=== PATIENT | male | born 1965 | race Caucasian/White ===

== ENCOUNTER 2025-02-06 23:55 | Inpatient (IN) | payer OTHER, SELFPAY ==
[2025-02-06 21:27] VITALS: BP 151/106; BMI 18.2
[2025-02-06 21:29] VITALS: BP 151/106
[2025-02-06] MEDS: DUONEB 3 ML INH (21:42)
[2025-02-06] MEDS: VENTOLIN NEBULES 5 MG INH (21:43)
--- NOTE | 2025-02-06 21:44 | ED.GENMED ---
History of Present Illness
<Sandip Zhu PA-C - Last Filed: 02/06/25 22:30>
General
Chief Complaint: Breathing Problem
Source: patient
Exam Limitations: none
Time Seen by Provider: 02/06/25 21:28
History of Present Illness
History of Present Illness:
59-year-old male with history of ALS presents via EMS from home with increased respiratory difficulty. Started around noon today. He is followed at [facility]. He typically wears a CPAP mask just for increased pressure support but does not typically
need additional oxygen. Today upon EMS arrival he was and he required 8 L nasal cannula underneath the CPAP mask. He does feel better with additional oxygen. He denies pain. Some history obtained from patient some history obtained from the
patient daughter. He is not anticoagulated. He started with URI symptoms yesterday with a sore throat and a cough.
Phy Exam
<Sandip Zhu PA-C - Last Filed: 02/06/25 22:30>
Physical Exam
Physical Exam:
General: Well-developed male with increased work of breathing
HEENT normocephalic atraumatic neck is supple
Heart: Tachycardic and regular
Lungs: Slightly diminished bilaterally with wheeze
Extremities: Mild edema bilateral lower extremities
Skin: Warm no rash
Scores
<Sandip Zhu PA-C - Last Filed: 02/06/25 22:30>
Heart Failure Risk
Heart Failure Risk Score: Not Applicable
Course
<Sandip Zhu PA-C - Last Filed: 02/06/25 22:30>
Orders/Labs/Results
Orders:
Orders
02/06/25 21:33
Electrocardiogram (*1) Urgent
Reason for Study: Other
Other Reason for Exam: Respiratory Distress
Cardiac Monitoring- Treatment ONCE
EKG- Treatment ONCE
IV Insert/Care/Rem.- Treatment PRN
O2 Therapy [RESP] Urgent
Titrate/Wean O2 to maintain O2 sat greater than (%): 93
Special Instructions: TO MAINTAIN CONTINUOUS O2 SATS >/= 93%
Pulse Ox/cont/shift [RESP] Urgent
Quantity: 1
Special Instructions: continuous pulse ox
02/06/25 21:36
Cr Chest Portable [CR Chest Portable - 1 View] Urgent
Comment:
Reason For Exam: sob
Reason Study Needs to be Portable: Patient Unstable
02/06/25 21:40
COVID-19 Antigen Urgent
Source: Nasal Swab
Complete Blood Count/With Diff Urgent
Comprehensive Metabolic Panel Urgent
NT-proBNP Urgent
Troponin I Urgent
Influenza A+B Rapid Molecular Urgent
BENOIT Source: Nasal Swab
Specimen Description:
02/06/25 21:41
Ipratropium/Albuterol Sulfate [Duoneb] 3 ml INH R NOW ONE
02/06/25 21:42
Albuterol Nebs [Ventolin Nebules] 5 mg INH R NOW STA
02/06/25 21:51
Dexamethasone Sod Phosphate [Decadron] 10 mg IV NOW STA
02/06/25 22:00
ABG [Arterial Blood Gas] Urgent
%Oxygen/Room Air: nasal cannula
02/06/25 22:23
0.9% Sodium Chloride 1000 ml [Nss] 1,000 ml IV BOLUS
02/06/25 23:00
Flush (0.9% Sodium Chloride) [Flush (Nss)] See Dose Instructions IV PER PROTOCOL
02/06/25 23:46
Admit/Transfer Patient As Directed
Co-Sign Provider:
Level of Care: Inpatient admission
Assign to:: IMU- Intermediate Care
Physician / Group: Luis Enrique
Diagnosis: Respiratory failure
Reason for Hospitalization: Respiratory failure
Expected length of stay greater than two midnights?: Yes
ELOS- Estimated Length of Stay in days: 2
I certify the patient meets the requirements for IP care: Yes
PRN Pain Medication Management As Directed
May give lesser potent ordered pain med per pt: Yes
preference::
Protocol:: Medication orders for pain may be administered in a
manner that supports deferring to patient preference
when the pt is:
- Requesting an ordered lesser potent pain medication.
Least to most potent pain medications are defined
as: acetaminophen < NSAID < tramadol < opioids
(morphine, oxycodone, hydromorphone).
- Requesting a lesser dose of the same medication IF
ORDERED.
- Requesting a less intrusive route of administration
if both routes are prescribed by the provider (PO <
IV).
02/06/25 23:48
Code Status As Directed
Resuscitation Status: Full Code
02/06/25 23:54
D-Dimer Stat
Procalcitonin Stat
If negative, will antibiotics be d/c'd or not started: Yes
Does the patient have renal or hepatic impairment?: No
Any recent (w/in 48 hrs) physiologic stress (CPR, rhabdo): No
02/07/25 01:32
Acetaminophen [Tylenol] 650 mg PO Q4HPRN PRN
Albuterol Nebs [Ventolin Nebules] 2.5 mg INH R Q4HPRN PRN
Bisacodyl [Dulcolax] 10 mg RECTAL [id number] PRN
Dextrose 5%/Lactringers 1000ML [D5lr] 1,000 ml IV 100 mls/hr
Docusate W/Senna [Senokot-S] 1 tablet PO BIDPRN PRN
Lorazepam [Ativan] 0.5 mg PO Q3H PRN anxiety
Ondansetron Injectable [Zofran] 4 mg IV Q6HPRN PRN
Polyethylene Glycol Powder [Miralax] 17 grams PO DAILYPRN PRN
02/07/25 01:32
Consult Notification Routine
Specialty to Notify: Pulmonary
Date consulting provider notified: 02/07/25
Time consulting provider notified: 07:50
Notified:: Provider
PULMONARY CONSULT Routine
Consulting Provider: Juno Peter
Was physician already notified: No
Reason for consult: ALS here with bronchitis and respiratory failure
Activity As Directed
Activity Level: With Assistance
Vital Signs As Directed
Frequency: Per unit guidelines
DX Deep Vein Thrombosis Video Routine
02/07/25 05:18
Basic Metabolic Panel IN AM
Complete Blood Count/No Diff IN AM
Venous Blood Gas IN AM
%Oxygen/Room Air: 100
02/07/25 06:00
MethylPREDNISolone PF [Solu-Medrol Pf] 40 mg IV Q12H
02/07/25 08:00
Celecoxib [Celebrex] 200 mg PO BID
Ipratropium/Albuterol Sulfate [Duoneb] 3 ml INH R QID
fluticasone propionate 1 spray NASAL BID
riluzole See Dose Instructions PO BID
02/07/25 Dinner
NPO
Allow oral meds: Yes
Allow clear liquids: Sips of Clears
02/07/25 18:00
Enoxaparin Sodium [Lovenox] 40 mg SC QPM
Abnormal Lab Results
02/06/25 02/06/25
21:40 22:00
WBC 12.8 H 10^3/uL
(4.8-10.8)
MCH 31.6 H pg
(27.0-31.0)
Absolute Neuts (auto) 11.3 H 10^3/uL
(1.4-6.5)
Absolute Lymphs (auto) 0.7 L 10^3/uL
(1.2-3.4)
Neutrophils % 88.6 H %
(42.2-75.2)
Lymphocytes % 5.6 L %
(20.5-51.1)
pO2 76 L mmHg
(83-108)
HCO3 29.8 H mmol/L
(21-28)
Creatinine 0.3 L mg/dL
(0.7-1.3)
Calcium 10.6 H mg/dl
(8.4-10.2)
02/06/25 21:40
02/06/25 21:40
Vital Signs
Initial and Last Documented VS:
Initial Vital Signs
Temp Pulse Resp BP Pulse Ox
97.7 F 117 30 151/106 99
02/06/25 21:27 02/06/25 21:27 02/06/25 21:27 02/06/25 21:27 02/06/25 21:27
Last Documented Vital Signs
Temp Pulse Resp BP Pulse Ox
98.5 F 122 25 112/80 96
02/07/25 15:58 02/07/25 18:00 02/07/25 18:00 02/07/25 18:00 02/07/25 18:00
<Elliott Ulloa MD - Last Filed: 02/07/25 18:49>
Orders/Labs/Results
Orders:
Orders
02/06/25 21:33
Electrocardiogram (*1) Urgent
Reason for Study: Other
Other Reason for Exam: Respiratory Distress
Cardiac Monitoring- Treatment ONCE
EKG- Treatment ONCE
IV Insert/Care/Rem.- Treatment PRN
O2 Therapy [RESP] Urgent
Titrate/Wean O2 to maintain O2 sat greater than (%): 93
Special Instructions: TO MAINTAIN CONTINUOUS O2 SATS >/= 93%
Pulse Ox/cont/shift [RESP] Urgent
Quantity: 1
Special Instructions: continuous pulse ox
02/06/25 21:36
Cr Chest Portable [CR Chest Portable - 1 View] Urgent
Comment:
Reason For Exam: sob
Reason Study Needs to be Portable: Patient Unstable
02/06/25 21:40
COVID-19 Antigen Urgent
Source: Nasal Swab
Complete Blood Count/With Diff Urgent
Comprehensive Metabolic Panel Urgent
NT-proBNP Urgent
Troponin I Urgent
Influenza A+B Rapid Molecular Urgent
BENOIT Source: Nasal Swab
Specimen Description:
02/06/25 21:41
Ipratropium/Albuterol Sulfate [Duoneb] 3 ml INH R NOW ONE
02/06/25 21:42
Albuterol Nebs [Ventolin Nebules] 5 mg INH R NOW STA
02/06/25 21:51
Dexamethasone Sod Phosphate [Decadron] 10 mg IV NOW STA
02/06/25 22:00
ABG [Arterial Blood Gas] Urgent
%Oxygen/Room Air: nasal cannula
02/06/25 22:23
0.9% Sodium Chloride 1000 ml [Nss] 1,000 ml IV BOLUS
02/06/25 23:00
Flush (0.9% Sodium Chloride) [Flush (Nss)] See Dose Instructions IV PER PROTOCOL
02/06/25 23:46
Admit/Transfer Patient As Directed
Co-Sign Provider:
Level of Care: Inpatient admission
Assign to:: IMU- Intermediate Care
Physician / Group: Luis Enrique
Diagnosis: Respiratory failure
Reason for Hospitalization: Respiratory failure
Expected length of stay greater than two midnights?: Yes
ELOS- Estimated Length of Stay in days: 2
I certify the patient meets the requirements for IP care: Yes
PRN Pain Medication Management As Directed
May give lesser potent ordered pain med per pt: Yes
preference::
Protocol:: Medication orders for pain may be administered in a
manner that supports deferring to patient preference
when the pt is:
- Requesting an ordered lesser potent pain medication.
Least to most potent pain medications are defined
as: acetaminophen < NSAID < tramadol < opioids
(morphine, oxycodone, hydromorphone).
- Requesting a lesser dose of the same medication IF
ORDERED.
- Requesting a less intrusive route of administration
if both routes are prescribed by the provider (PO <
IV).
02/06/25 23:48
Code Status As Directed
Resuscitation Status: Full Code
02/06/25 23:54
D-Dimer Stat
Procalcitonin Stat
If negative, will antibiotics be d/c'd or not started: Yes
Does the patient have renal or hepatic impairment?: No
Any recent (w/in 48 hrs) physiologic stress (CPR, rhabdo): No
02/07/25 01:32
Acetaminophen [Tylenol] 650 mg PO Q4HPRN PRN
Albuterol Nebs [Ventolin Nebules] 2.5 mg INH R Q4HPRN PRN
Bisacodyl [Dulcolax] 10 mg RECTAL [id number] PRN
Dextrose 5%/Lactringers 1000ML [D5lr] 1,000 ml IV 100 mls/hr
Docusate W/Senna [Senokot-S] 1 tablet PO BIDPRN PRN
Lorazepam [Ativan] 0.5 mg PO Q3H PRN anxiety
Ondansetron Injectable [Zofran] 4 mg IV Q6HPRN PRN
Polyethylene Glycol Powder [Miralax] 17 grams PO DAILYPRN PRN
02/07/25 01:32
Consult Notification Routine
Specialty to Notify: Pulmonary
Date consulting provider notified: 02/07/25
Time consulting provider notified: 07:50
Notified:: Provider
PULMONARY CONSULT Routine
Consulting Provider: Juno Peter
Was physician already notified: No
Reason for consult: ALS here with bronchitis and respiratory failure
Activity As Directed
Activity Level: With Assistance
Vital Signs As Directed
Frequency: Per unit guidelines
DX Deep Vein Thrombosis Video Routine
02/07/25 05:18
Basic Metabolic Panel IN AM
Complete Blood Count/No Diff IN AM
Venous Blood Gas IN AM
%Oxygen/Room Air: 100
02/07/25 06:00
MethylPREDNISolone PF [Solu-Medrol Pf] 40 mg IV Q12H
02/07/25 08:00
Celecoxib [Celebrex] 200 mg PO BID
Ipratropium/Albuterol Sulfate [Duoneb] 3 ml INH R QID
fluticasone propionate 1 spray NASAL BID
riluzole See Dose Instructions PO BID
02/07/25 Dinner
NPO
Allow oral meds: Yes
Allow clear liquids: Sips of Clears
02/07/25 18:00
Enoxaparin Sodium [Lovenox] 40 mg SC QPM
Abnormal Lab Results
02/06/25 02/06/25
21:40 22:00
WBC 12.8 H 10^3/uL
(4.8-10.8)
MCH 31.6 H pg
(27.0-31.0)
Absolute Neuts (auto) 11.3 H 10^3/uL
(1.4-6.5)
Absolute Lymphs (auto) 0.7 L 10^3/uL
(1.2-3.4)
Neutrophils % 88.6 H %
(42.2-75.2)
Lymphocytes % 5.6 L %
(20.5-51.1)
pO2 76 L mmHg
(83-108)
HCO3 29.8 H mmol/L
(21-28)
Creatinine 0.3 L mg/dL
(0.7-1.3)
Calcium 10.6 H mg/dl
(8.4-10.2)
02/06/25 21:40
02/06/25 21:40
Vital Signs
Initial and Last Documented VS:
Initial Vital Signs
Temp Pulse Resp BP Pulse Ox
97.7 F 117 30 151/106 99
02/06/25 21:27 02/06/25 21:27 02/06/25 21:27 02/06/25 21:27 02/06/25 21:27
Last Documented Vital Signs
Temp Pulse Resp BP Pulse Ox
98.5 F 122 25 112/80 96
02/07/25 15:58 02/07/25 18:00 02/07/25 18:00 02/07/25 18:00 02/07/25 18:00
<Sandip Zhu PA-C - Last Filed: 02/06/25 22:30>
MDM/Problems Addressed
Differential Diagnosis Includes:
Respiratory difficulty. History of ALS. Question viral illness COVID and flu test pending. Question pneumonia versus pneumothorax versus progression of disease
<Sandip Zhu PA-C - Last Filed: 02/06/25 22:30>
*Critical Care Note
Total Time (30-74mins, 75-104mins- exclusive of procedures): Not Applicable
<SHANNON Gutierrez Last Filed: 02/06/25 22:30>
Update Note
Update Note:
Patient received nebulizer here and is getting additional oxygen support through his BiPAP. Chest x-ray clear. Labs reviewed. Suspect acute bronchitis. He clinically has improved. Spoke with family they prefer to stay here rather than be
transferred to [facility]. He was given Decadron as well. Will admit to hospital for acute bronchitis in the setting of known ALS
ED Attending Note
<Sandip Zhu PA-C - Last Filed: 02/06/25 22:30>
-
Portions of this chart may have been created with voice recognition software.� Occasional wrong word or��sound alike� substitutions may have occurred due to the inherent limitations of voice recognition software.
<Elliott Ulloa MD - Last Filed: 02/07/25 18:49>
ED Attending Note
Patient seen and examined by attending physician: Yes
I performed the substantive portion of visit, reviewed & personally made and approve the management plan that is documented in note by myself or JASPAL.: Yes
ED Attending Note:
Patient with ALS. Presents with respiratory symptoms upper respiratory symptoms progressive over 24 hours. Much worse late this afternoon. Uses BiPAP at home. Followed at [facility]. Hypoxic at home.
On exam patient was initially retracting BiPAP in place. Pulse ox is 91 to 96%. Some mild expiratory wheezing and rhonchi diffusely. However fully alert and able to communicate and interact. Sequelae of ALS. With atrophy and muscle weakness
Rechecked multiple times while in the room. Pulse oxes remained borderline. Added DuoNeb and albuterol. Chest x-ray initially concern for pneumothorax but it was a skinfold. Reviewed this with radiology. Currently doing much better on the
BiPAP. Retractions have improved significantly. ABG stable. Steroids ordered. Patient and daughter would very much like to stay here.
Discussed intubation if necessary. They are contemplating this. However at this time he does not need immediate airway management.
critical care=35 minutes
Discharge Plan
Departure
Patient Disposition: Admit
Date of Disposition: 02/06/25
Time of Disposition: 22:29
Presentation/result/management discussed w/ accepting MD/DO: Hospitalist
Discharge Problem:
Acute bronchitis
Interventions
Interventions:
*General Assessment Last Done: 02/06/25 21:39
*Neglect/Abuse Screening Last Done: 02/06/25 21:39
*ED- Fall Risk Assessment Last Done: 02/06/25 21:50
*Nursing Disposition Last Done: 02/07/25 01:10
ED- Cardiac Assessment Last Done: 02/06/25 23:10
ED- Pulmonary Assessment Last Done: 02/06/25 23:10
Discharge Date and Time
Discharge Date/Time: 02/07/25 01:10
[2025-02-06 21:49] LABS: % Basophils 0.4 % (0-2); % Eosinophils 0.5 % (0-6); % Immature Granulocytes 0.3 % (0-0.5); % Lymphocytes 5.6 % (20.5-51.1); % Monocytes 4.6 % (1.7-9.3); % Neutrophils 88.6 % (42.2-75.2); Absolute Basophils 0.1 10^3/uL (0-0.2); Absolute Eosinophils 0.1 10^3/uL (0-0.7); Absolute Lymphocytes 0.7 10^3/uL (1.2-3.4); Absolute Monocytes 0.6 10^3/uL (0.1-0.6); Absolute Neutrophils 11.3 10^3/uL (1.4-6.5); Hematocrit 44.5 % (39.0-52.0); Mean Corp Hgb Conc. 33.7 g/dL (33.0-37.0); Mean Corpuscular Hgb 31.6 pg (27.0-31.0); Mean Corpuscular Volume 93.9 fL (80.0-94.0); Mean Platelet Volume 10.1 fL (7.4-10.4); Nucleated Red Blood Cells % 0 % (-); Platelet Count 215 10^3/uL (130-400); Red Blood Cell Count 4.74 10^6/uL (4.70-6.10); Red Cell Dist. Width 12.3 % (11.5-14.5); White Blood Cell Count 12.8 10^3/uL (4.8-10.8)
[2025-02-06] MEDS: DECADRON 10 MG IV (21:54)
[2025-02-06 22:00] VITALS: BP 150/98
[2025-02-06 22:10] LABS: ALT (SGPT) 39 U/L (0-50); AST (SGOT) 30 U/L (17-59); Alkaline Phosphatase 62 U/L (38-126); Blood Urea Nitrogen 18 mg/dl (9-20); COVID-19 Antigen Negative (Negative); Calcium 10.6 mg/dl (8.4-10.2); Carbon Dioxide 29 mmol/L (22-30); Chloride 100 mmol/L (98-107); Estimated Creatinine Clearance 120 ml/min; Glucose 90 mg/dl (70-99); Potassium 4.5 mmol/L (3.5-5.1); Sodium 137 mmol/L (135-145); Total Protein 7.9 g/dl (6.3-8.2); eGFR > 60.00
[2025-02-06 22:12] LABS: B.E. 4.4 mmol/L; HCO3 29.8 mmol/L (21-28); O2 Saturation % 96.4 % (94-98); PCO2 46 mmHg (35-48); PO2 76 mmHg (83-108); pH 7.42 (7.35-7.45)
[2025-02-06 22:23] LABS: NT-proBNP < 20.0 pg/ml; Troponin I < 0.012 ng/ml
[2025-02-06] MEDS: NSS 1000 IV (22:24)
[2025-02-06 23:00] VITALS: BP 133/90
--- NOTE | 2025-02-06 23:53 | HPS.HSE ---
Family Physician
-
Family Physician:
Chief Complaint
-
Shortness of breath
History of Present Illness
This is a 59-year-old with past medical history significant for ALS who is currently CPAP dependent at home presenting to the emergency department with worsening shortness of breath over the last 2 days.
According to patient and family he had sore throat and some nasal congestion yesterday. Today he reported having postnasal drip. Family reported that although he had his nasal congestion yesterday he was not having any shortness of breath.
However today he started noticing that he was more gasping for he and required his CPAP throughout the day. He was more sleepy. After sleeping with his CPAP and waking up he felt a bit better. Try to exercise and then afterwards he got really
short of breath. After getting off of the machine and trying to lay down he noticed increased postnasal drip as well. He is unable to bring up any cough. Denies any fevers or chills. There are no known sick contacts.
He denied having any chest pain. He denies any lower extremity swelling. He denies any calf tenderness. He has been no recent travels. He is still mobile despite the ALS but relatively decreased. He does have some laryngeal spasms but denies
dysphagia. No prior history of aspiration pneumonia.
By time EMS was called and pulse ox checked the patient was desatting into the low 80s. He was placed on oxygen with improvement in oxygen status but had increased work of breathing.
On arrival in the emergency department he was placed on BiPAP. When I saw the patient his vitals were as follows blood pressure of 130/90 with a pulse of 107 and was satting 98% on 15 L BiPAP of 8/4.
He had a white count of 12.8 hemoglobin normal platelet count normal. His electrolytes were normal with a bicarb of 29 and a BUN and creatinine of 10 and 0.3.
Troponin was negative, BNP was negative. COVID test was negative. Flu test was negative.
Chest x-ray shows no acute infiltrates.
Medical History
Past Medical History
Past Medical History: Reports Other (ALS)
Past Surgical History: Reports None
Social History
Tobacco: Non-smoker
Alcohol: None
Drug: None
Personal:
Living: With Family
Employment: Disabled
Family History
Family History: Not pertinent
Allergies / Home Medications
Allergies reflects when Allergies were last updated in [facility].
Home Medications with original date entered in [facility]
Allergy/Medication List:
Allergies
Allergy/AdvReac Type Severity Reaction Status Date / Time
Penicillins Allergy Unknown Verified 02/06/25 21:35
Home Medications
celecoxib 200 mg capsule (Celebrex) 200 mg PO BID 02/06/25
fluticasone propionate 50 mcg/actuation nasal spray,suspension 1 spray intranasal BID 02/06/25
lorazepam 0.5 mg tablet (Ativan) 0.5 mg PO Q3H PRN anxiety 02/06/25
riluzole 50 mg tablet 50 mg PO BID 02/06/25
Review of Systems
-
History Source: Patient and Family
Constitutional: Reports No Symptoms
EENT: Reports No Symptoms
Respiratory: Reports Trouble Breathing
Cardiac: Reports No Symptoms
Abdomen/GI: Reports No Symptoms
: Reports No Symptoms
Musculoskeletal: Reports No Symptoms
Skin: Reports No Symptoms
Neurological: Reports No Symptoms
Endocrine: Reports No Symptoms
Hematologic/Lymphatic: Reports No Symptoms
Psych: Reports No Symptoms
Physical Exam
Vital Signs
Vital Signs
Temp Pulse Resp BP Pulse Ox
98.1 F 107 27 133/90 96
02/06/25 23:17 02/06/25 23:00 02/06/25 23:00 02/06/25 23:00 02/06/25 23:10
Physical Exam
General: Appears Chronically Ill
HEENT: NormoCephalic, Anicteric, Moist mucous membranes, Atraumatic, PERRLA and Oxygen
Respiratory: Clear and Other (Rapid shallow breaths without accessory muscle use)
Cardiac: S1/S2 and Tachycardia
Breast: Deferred by me
GI: Soft, Non Tender, Non Distended and Normal Bowel Sounds
Rectal: Deferred by Provider
Genito-urinary: Deferred by me
Musculoskeletal: No Clubbing, No Cyanosis and No Edema
Skin: Warm
Neuro: AO x 3 and Nonfocal/grossly intact
Hematologic/Lymphatic: No Lymphadenopathy
Psych: Calm
Laboratory Results
-
02/06/25 21:40
02/06/25 21:40
Laboratory Results
pH 7.42 (7.35-7.45) 02/06/25 22:00
pCO2 46 mmHg (35-48) 02/06/25 22:00
pO2 76 mmHg (83-108) L 02/06/25 22:00
HCO3 29.8 mmol/L (21-28) H 02/06/25 22:00
Total Bilirubin 1.0 mg/dl (0.2-1.3) 02/06/25 21:40
AST 30 U/L (17-59) 02/06/25 21:40
ALT 39 U/L (0-50) 02/06/25 21:40
Alkaline Phosphatase 62 U/L (38-126) 02/06/25 21:40
Troponin I < 0.012 ng/ml 02/06/25 21:40
Data Reviewed
-
Diagnostic Radiology: Image Personally Visualized and interpreted and Report Reviewed by me
Lab Data: Labs Reviewed by me
Old Records: Reviewed
Impression/Plan
-
IMPRESSION:
Patient with ALS and progressive respiratory failure will appears to have a rapid decline in his respiratory function over the last 24 hours initiated by an episode of sore throat and postnasal drip. Patient is unable to cough and has a chest x-ray
that was clear. He has mild leukocytosis to 12.8. Overall picture is consistent with acute bronchitis exacerbating underlying restrictive/mechanical lung failure due to his ALS. He has no volume overload. Negative viral panel. Negative
troponin. No lower extremity swelling or calf tenderness. He has improved with additional support with BiPAP.
PLAN:
Hypoxic respiratory failure -mild hypercapnia, suspected acute bronchitis
- Due to the new BiPAP requirement and respiratory failure will admit to IMU
- Continue BiPAP 06/03 for now
- Hyperglycemia
- Solu-Medrol, [id number] nebs and as needed albuterol
- Will check D-dimer
-Check procalcitonin
- Will hold off on steroids for now
- N.p.o. pending reevaluation
- Maintenance fluids
- Pulmonary consult
DVT prophylaxis�Lovenox subcu
CODE STATUS patient is full code for now
[2025-02-06] MEDS: FLUSH (NSS) 1 FLUSH IV (23:55)
[2025-02-07] VITALS (20 sets, daily range): BP systolic 101–136; BP diastolic 74–96; PULSE 100–111; BMI 16.5; BMI 16.7
[2025-02-07 00:43] LABS: Procalcitonin < 0.05 ng/ml (0.0-0.25)
[2025-02-07 00:44] LABS: D-Dimer < 0.27 ug/mlFEU (0.00-0.50)
[2025-02-07] MEDS: D5LR 1000 IV ×3 (01:52→23:07)
[2025-02-07] MEDS: ATIVAN 0.5 MG PO ×7 (01:56→23:55)
--- NOTE | 2025-02-07 03:15 | PTCARENOTE ---
Pt arrived to ICU room 3359 from ER at 0117, pt is IMU level of care. Received pt on his home bipap machine 10/5 15LPM--very shortly after this was switched out to the hospital bipap machine, still using pt's mask and tubing. The switch to the
hospital device caused pt to have some distress/anxiety, pt with visibly panicked look on his face and tears in his eyes, and looked as if he was struggling to breathe, RR increased to 30s but SpO2 remained in high 90s throughout this episode.
Pressure increased on bipap until patient was comfortable, up to 18/5 (still 15LPM), and eventually settings were left at 16/5 10LPM and pt has been comfortable on this. Pt is AAOx4, able to verbalize his needs but his voice is weak at baseline and
coupled with the bipap mask pt can be difficult to understand. Pt cannot move his extremities and is flaccid throughout. ST on monitor, low 100s. Pt was wearing his own condom cath from home attached to a leg bag, this was changed out to a #25
condom cath with a regular bag. Skin intact on penis, macerated but no breakdown or redness noted. Pt's family is very precise about his care, voicing concern about possible wrinkles from the sheets/pad under patient and that he is unable to adjust
himself. Discussed the plan to turn patient Q2 hours using a pillow or wedge to offload pressure, and family was adamant that they DO NOT want him turned, that he 'does better' on his back. I asked if they turn him at home and they said they don't
turn him, he has a continuous lateral rotation bed. Skin intact, some blanchable redness noted to left scapula, and heels were red with questionable DTI noted. Foam dressings applied to b/l scapula, sacrum, b/l elbows and b/l heels. Heels offloaded
on pillow, arms elevated on pillows as well. RT discussed putting a protective dressing on pt's nose to protect from bipap mask and family declined this as well. Family educated that if they notice any sort of redness developing to notify staff. Pt
medicated with po Ativan for anxiety, able to take pill whole with sips of water without any issue. See nursing shift assessment flowsheet for further assessment details. Admission database completed. Pt provided with a call dumont that he can tap
with his head, and family has made arrangements so that someone will be with him around the clock to help with communication and caring for him.
[2025-02-07] MEDS: SOLU-MEDROL PF 40 MG IV ×2 (05:05→17:44)
[2025-02-07 05:27] LABS: Venous Blood Gas HCO3 27.9 mmol/L (22-27); Venous Blood Gas O2 Sat % 98.8 %; Venous Blood Gas pCO2 53 mmHg (35-48); Venous Blood Gas pH 7.33 (7.32-7.43); Venous Blood Gas pO2 153 mmHg (30-50)
[2025-02-07 05:46] LABS: Hematocrit 39.7 % (39.0-52.0); Hemoglobin 13.3 g/dL (13.0-18.0); Mean Corp Hgb Conc. 33.5 g/dL (33.0-37.0); Mean Corpuscular Hgb 31.6 pg (27.0-31.0); Mean Corpuscular Volume 94.3 fL (80.0-94.0); Mean Platelet Volume 10.4 fL (7.4-10.4); Platelet Count 212 10^3/uL (130-400); Red Blood Cell Count 4.21 10^6/uL (4.70-6.10); Red Cell Dist. Width 12.2 % (11.5-14.5)
[2025-02-07 06:06] LABS: Blood Urea Nitrogen 13 mg/dl (9-20); Carbon Dioxide 23 mmol/L (22-30); Chloride 105 mmol/L (98-107); Estimated Creatinine Clearance 109 ml/min; Glucose 154 mg/dl (70-99); Potassium 4.7 mmol/L (3.5-5.1); Sodium 136 mmol/L (135-145); eGFR > 60.00
--- NOTE | 2025-02-07 06:27 | PTCARENOTE ---
Went into pt's room to potentially reposition/turn him for 0600. Pt's son in law at bedside. Both pt and pt's son in law declined to have patient repositioned. Again I reiterated the reasoning behind turning, to prevent skin breakdown, and that this
is not going to be the only time they hear someone mention turning the patient because we normally do it every 2 hours. I clarified the reason behind declining turns/repositioning--when they stated that pt 'does better on his back', the son in law
states that from a respiratory standpoint the pt does better and that sometimes he will be in distress when turned. He said they used to turn him more frequently at home but have not been doing it recently, and that is the reason for the continuous
lateral rotation mattress. Son in law stated (and pt nodded his head in agreement) that pt will occasionally ask to be repositioned slightly, especially if he slides down and there is extra pressure on his tail bone. I offered the solution of maybe
using an air cushion to tuck under patient as opposed to a more bulky pillow or wedge, they declined at this time, son in law stated 'maybe later'. Air cushion left in room for possible future use.
[2025-02-07] MEDS: DUONEB 3 ML INH ×4 (07:47→19:50)
--- NOTE | 2025-02-07 07:49 | W.PN.HOSP.TC ---
Today's Communication/Plan
-
see plan
Assessment / Plan
Assessment / Plan
IMPRESSION:
Patient with ALS and progressive respiratory failure who appears to have a rapid decline in his respiratory function over the last 24 hours initiated by an episode of sore throat and postnasal drip. Patient is unable to cough and has a chest x-ray
that was clear. He has mild leukocytosis to 12.8. Overall picture is consistent with acute bronchitis exacerbating underlying restrictive/mechanical lung failure due to his ALS. He has no volume overload. Negative viral panel. Negative
troponin. No lower extremity swelling or calf tenderness. He has improved with additional support with BiPAP.
PLAN:
Hypoxic respiratory failure -mild hypercapnia, suspected acute bronchitis
- Due to the new BiPAP requirement and respiratory failure will admit to IMU
- Continue BiPAP 06/03 for now
- Solu-Medrol, [id number] nebs and as needed albuterol
- D-dimer - negative
- Procalcitonin negative
- N.p.o. pending reevaluation
- Maintenance fluids
- Pulmonary consult
DVT prophylaxis�Lovenox subcu
CODE STATUS patient is full code. He has been DNR in past. Patient's son's birthday is on February 13 and he wants to remain full code until post birthday
51 minutes spent on patient care
Anticipated Discharge: > 48 hours
Subjective/Interval History
-
Date of Service: February 07, 2025
remains on bipap
reports chills yesterday
awake, alert, able to nod yes and no
Objective Data
-
Labs:
Laboratory Results
02/06/25 02/06/25 02/07/25
21:40 22:00 05:18
WBC 12.8 H 15.0 H
Hgb 15.0 13.3
Hct 44.5 39.7
Plt Count 215 212
HCO3 29.8 H
Sodium 137 136
Potassium 4.5 4.7
Chloride 100 105
Carbon Dioxide 29 23
BUN 18 13
Creatinine 0.3 L 0.2 L
Glucose 90 154 H
Calcium 10.6 H 10.0
Total Bilirubin 1.0
AST 30
ALT 39
Alkaline Phosphatase 62
Vital Signs:
Vital Signs
Temp Pulse Resp BP Pulse Ox
98.3 F 115 22 130/87 100
02/07/25 01:34 02/07/25 06:00 02/07/25 06:00 02/07/25 06:00 02/07/25 06:00
I&O
02/06/25 02/07/25 02/08/25
06:59 06:59 06:59
Intake Total 450 / 450
Output Total 550 / 550
Balance -100 / -100
Review of Systems
-
History Source: Patient
All other systems: Reviewed and negative
Physical Exam
-
General: No Apparent Distress and Other (on BiPAP)
HEENT: PERRLA
Respiratory: Negative Wheezes
Cardiac: Regular Rhythm and S1/S2
GI: Soft and Nontender
Musculoskeletal: No Edema
Skin: Warm and Dry; Negative Rash
Neuro: AO x 3
Psych: Calm
Data Reviewed
-
Diagnostic Radiology: Report Reviewed by me
Labs: Labs Reviewed by me
[2025-02-07] MEDS: CELEBREX 200 MG PO ×2 (08:09→20:18)
--- NOTE | 2025-02-07 10:22 | PTCARENOTE ---
re[place] 0715 handoff bedside, family present. tolerating bipap 12/5 with 10 liters initially, titrated down by RT, presently 4l. moved to contin lat rotation bed, uses at home, positioned for comfort. protective foams bilat scapula, heels,
elbows, sacrum. takes breaks briefly from mask for oral meds. IV fluids infuse. rest of assessment as noted.
--- NOTE | 2025-02-07 10:50 | CON.PUL ---
Consultation
Consultation Request
Date/Time Consultation Requested: 02/07/2025131
Date/Time Consultation Performed: 02/07/20251010
Requesting Provider: Dr. Dudley
Performing Provider: Dr. Peter
Reason for Consultation: Hypoxia
Medical History
-
Chief Complaint: SOB
History of Present Illness:
59-year-old male with a past medical history of ALS who presents with sudden shortness of breath. Patient has had ALS for about 5 years now and his respiratory status has been declining over the last year. He does use noninvasive ventilation at
home typically with sleep/naps, and uses a volume-cycled assist-control mode during the day via a mouthpiece with a tidal volume of thousand and an I time of 0.8 seconds. Also has his own cough assist device which helps him clear his phlegm. He
suffers from allergies and increased phlegm/chest congestion/mucous plugging; of note, he had an episode in Spring 2023 where he had a mucous plug. Now, over the weekend he started to develop a sore throat and then one day prior to arrival he
developed sudden shortness of breath. He checked his pulse oximetry at home and it was 82%, and he normally is in the mid-90s. He does feel like sometimes he has spasms in his airway. 911 was called and patient was placed onto BiPAP en route here
to the hospital at [place]. In the ER he was afebrile to 97.7 �F, tachycardic to 117, tachypneic to 30 breaths/min, BP 151/106 and saturating 99% on 8 L/min. Initial labs showed mild leukocytosis to 12.8, Hb 15, calcium 10.6, troponin negative
at <0.012, proBNP negative at <20, procalcitonin negative at <0.05 and COVID-19 antigen negative. Flu swab negative and CXR showed clear lungs with no acute cardiopulmonary pathology. In the ER he was given Decadron 10 mg, albuterol, DuoNebs and 1
L NS 0.9%. He was placed onto BiPAP 16/5 bled with 10 L/min, and was admitted to the IMU for further care. Pulmonary service now consulted for additional management/recommendations.
When I saw the patient, he was comfortably resting in bed, currently on BiPAP 16/5 cmH2O, bled with 4 L/min, saturating 97% with heart rate 90 and BP 114/89. He is current VTe is 600mL and he is breathing at 19 breaths/min. His daughter, Kimberlee, was
present at bedside as well as the patient's son-in-law. All questions were answered. Patient is currently feeling better. Still has periods of SOB but is markedly improved compared to when he first arrived to the hospital. He currently denies
CROSS, chest pain, abdominal pain, nausea, fevers or chills.
PMHx: ALS dependent on NIV at home, seasonal allergies
PSHx: Non-contributory
Past Medical History
Past Medical History: Other (Above as per HPI)
Past Surgical History: Other (Above as per HPI)
Social History
Tobacco: Non-smoker
Alcohol: None
Drug: None
Living: With Family
Employment: Disabled
Family History
Family History: Reviewed & Not Pertinent
Allergies / Home Medications
Allergies
Allergy/AdvReac Type Severity Reaction Status Date / Time
Penicillins Allergy Unknown Verified 02/06/25 21:35
Home Medications
�Medication �Instructions �Recorded �Confirmed �Last Taken �Type
celecoxib 200 mg capsule (Celebrex) 200 mg PO BID Pain 02/06/25 02/06/25 Unknown History
fluticasone propionate 50 1 spray intranasal BID Allergies 02/06/25 02/06/25 Unknown History
mcg/actuation nasal
spray,suspension
lorazepam 0.5 mg tablet (Ativan) 0.5 mg PO Q3H PRN anxiety 02/06/25 02/06/25 02/06/25 22:40 History
riluzole 50 mg tablet 50 mg PO BID ALS 02/06/25 02/06/25 Unknown History
Review of Systems
-
History Source: Patient
All other systems: Negative unless noted
Vitals / Labs / Diagnostic Testing
Vital Signs
Temp Pulse Resp BP Pulse Ox
98.0 F 109 20 130/87 96
02/07/25 08:04 02/07/25 07:55 02/07/25 07:55 02/07/25 06:00 02/07/25 07:55
Lab Data
02/07/25 05:18
02/07/25 05:18
Laboratory Results
02/06/25
22:00
pH 7.42
pCO2 46
pO2 76 L
HCO3 29.8 H
O2 Delivery Level
Microbiology
02/06/25 21:40 Nasal Swab Influenza Types A & B (TALI) - Final
Negative for Influenza A & B, NAAT
Negative results must be combined with clinical observations
and patient history.
Nucleic Acid Amplification test (NAAT)performed on the
[employer] platform.
Diagnostic Testing:
Physical Exam
-
HEENT: Normocephalic and Anicteric
Cardiovascular: S1/S2 and Peripheral Edema (negative)
Respiratory: Wheeze (negative), Rales (negative), Rhonchi (negative) and Other (Significantly reduced breath sounds with poor inspiratory effort)
GI: Soft, Non Distended, Non Tender and Normal Bowel Sounds
Neurology: AO x 3 and Tremors (negative)
Skin: Warm and Dry
General: Respiratory Distress (negative), Comfortable, Fever (negative) and Chills (negative)
Assessment
-
Assessment: 59-year-old male with a past medical history of ALS who presents with sudden shortness of breath. Patient has had ALS for about 5 years now and his respiratory status has been declining over the last year. He does use noninvasive
ventilation at home typically with sleep/naps, and uses a volume-cycled assist-control mode during the day via a mouthpiece with a tidal volume of thousand and an I time of 0.8 seconds. Also has his own cough assist device which helps him clear his
phlegm. He suffers from allergies and increased phlegm/chest congestion/mucous plugging; of note, he had an episode in Spring 2023 where he had a mucous plug. Now, over the weekend he started to develop a sore throat and then one day prior to
arrival he developed sudden shortness of breath. He checked his pulse oximetry at home and it was 82%, and he normally is in the mid-90s. He does feel like sometimes he has spasms in his airway. 911 was called and patient was placed onto BiPAP en
route here to the hospital at [place]. In the ER he was afebrile to 97.7 �F, tachycardic to 117, tachypneic to 30 breaths/min, BP 151/106 and saturating 99% on 8 L/min. Initial labs showed mild leukocytosis to 12.8, Hb 15, calcium 10.6,
troponin negative at <0.012, proBNP negative at <20, procalcitonin negative at <0.05 and COVID-19 antigen negative. Flu swab negative and CXR showed clear lungs with no acute cardiopulmonary pathology. In the ER he was given Decadron 10 mg,
albuterol, DuoNebs and 1 L NS 0.9%. He was placed onto BiPAP 16/5 bled with 10 L/min, and was admitted to the IMU for further care. Pulmonary service now consulted for additional management/recommendations.
Chronic conditions [employer]: ALS dependent on NIV at home, seasonal allergies
Impression:
#Acute respiratory failure with hypoxia + hypercapnia
#Leukocytosis
#ALS
#Non-invasive ventilation dependent with sleep due to neuromuscular disease (ALS)
Plan:
- Seems that patient had increased mucus production and developed a mucous plug +/- broncho/laryngospasm which is what led him to his current hospitalization
- He is now requiring supplemental oxygen and usually he is not on oxygen at all during the day or during sleep
- Continue with supplemental O2 during the day with nasal cannula, and when he wants to nap or when he goes to sleep, then place onto BiPAP using the patient's home mask
- He does have his own machine here if he would rather use this during sleep, however unsure if we can bleed supplemental O2 through his machine
- At home, he uses pressure support at night with safety Vt: 520cc, PEEP: 4, PS: 4, respiratory rate: 14, Ti: 0.9 0 1.4 seconds, and T-apnea: 25 seconds
- During the day he uses a mouthpiece and the ventilator setting changes to ACV with VT set at 1000cc, Ti: 0.8 seconds, respiratory rate: 15 and I:E ratio of 1:3
- Continue with aspiration precautions and maintain saturations >90-94%
- Patient also has a cough assist device with him which we should use if needed
- He is not currently wheezing nor does he carry history of asthma hence unclear if the systemic steroids are needed --> continue for now but if patient continues to clinically improve then would rapidly taper off
- Continue with DuoNeb QID, as the patient's daughter, Kimberlee, says that she thinks these are occasionally helping him breathe better
- prn nebulized bronchodilators - not currently bronchospastic
- Patient also has postnasal drip and he can use Flonase that family has brought in for him, 1 spray per nostril BID or 2 sprays per nostril once daily
- Replete electrolytes with K>4, Mg>2
- Trend H/H and transfuse if needed to keep Hb>7g/dL; keep plt>20k, unless there is concern for bleeding then keep plt>50k
- Maintain euglycemia with goal BG >100 and <180
- DVT ppx: LMWH
Code status: Full code --> he says that his son's birthday is upcoming, so he wants to remain full code at least until after this event. He understands that if he were to deteriorate and require intubation that it would undoubtedly lead to
tracheostomy. Unclear if he would want to live like that. This will be an ongoing discussion depending on his continued hospital course.
Continue IMU level of care; pulmonary service will continue to follow along. Of note, his president trust company is Dr. Ranulfo Hodge at [facility]. His PCP is also his neurologist (Dr. Yoselin Petty) who sees the patient at the ALS center at [facility]. Once patient
is discharged, he should continue following up with his providers at [facility]. If he wishes to see a pulmonary team closer to [place], he is always welcome to follow-up with us at the [facility] office.
Data:
CXR 02/06/2025: No acute cardiopulmonary process
Total time spent today was 81 minutes for this encounter. Time includes reviewing laboratory test/imaging results, reviewing pertinent medical records, obtaining and reviewing medical history, performing an appropriate exam, ordering medications,
tests and procedures. Time also includes documentation of this encounter, coordinating patient care and communicating with other healthcare professionals. Total time does not include separately billed tests performed on this date of service.
[2025-02-07] MEDS: NON-FORMULARY ITEM 50 MG PO ×2 (11:02→20:20)
--- NOTE | 2025-02-07 12:30 | CM ---
Addendum entered by Bret Cerda 02/07/25 14:36:
Patient caregivers are 7 days a week from 6:00am to 11:00 PM. Caregivers are friends and from [facility]. Preference for HH RN is .
Original Note:
Initial assessment completed with patient and daughter. Patient shook head yes or no. Patient lives with his daughter and S-I-L in a 2 story home with basement and ramps into the home. B/B on . Patient is W/CH bound and requires assistance for
ADL's and feediing. Unable to transfer self. DME in home is a hospital bed, 2 W/CH's, shower chair, ceiling lift, Bipap and a Tobii device to assist with communication and computer usage. patient has caregivers and goes to OT weekly through [facility] program. Daughter is HC-POA. No service. PCP is Dr. Yoselin Petty and Pharmacy is [facility] in [place]. Discharge POC: Anticipate home with HH RN.
--- NOTE | 2025-02-07 12:33 | PTCARENOTE ---
resting. med with ativan per pt request as ordered. tolerating rotation at this time, bipap 12/5 with 2l.
[2025-02-07] MEDS: TYLENOL 650 MG PO (13:39)
--- NOTE | 2025-02-07 14:20 | WOUNDNOTE ---
WON RN note: Patient admitted with acute bronchitis.
See H&P for complete history. Lives at home with daughter Gali.
PMH: ALS-follows at [facility]. Anxiety and uses Bipap when needed.
Wound Location and type/assessment: Patient admitted with: No open wounds, patient at high risk for pressure injuries, requested consult by nursing. Nurse Daphne assisted with positioning patient to assess areas of concern. Shoulder blades with
blanchable pink skin, foams in use. B/L heels with blanchable purple discolored skin, feet cool to touch. Suspect discolored skin due to circulation issues, not a DTI. Daughter Kimberlee at bedside and patient confirmed they do use plastic waffle
offloading heel boots at home. Patient willing to try our fiber filled boots(TruVue lites). Elbows and Sacrum with protective foams, nurse confirmed both intact. Pillows under arms for comfort.
Appetite: NPO
Pressure redistribution devices in place: On Sports bed, HOB elevated (patient reports difficulty breathing when HOB down), nurse repositioned recently for comfort. Recommend add bariatric air cushion under fitted sheet behind back for comfort,
patient willing to try. Called [employer] for offloading heel boots and bariatric air cushion. Patient and daughter made aware can take home when discharged.
Plan: Changed foams on heels, recommend assess under silicone foam daily for any changes. Maintained foams on b/l shoulder blades. Offloading heels and shoulders. Will confirm orders with hospitalist and updated nurse.
Updated care plan and will follow as needed.
Note to case management of equipment requested for discharge: none.
[2025-02-07] MEDS: NON-FORMULARY ITEM NASAL (14:30)
[2025-02-07 16:17] LABS: Venous Blood Gas B.E. 5.8 mmol/L (-4 to +4); Venous Blood Gas HCO3 31.2 mmol/L (22-27); Venous Blood Gas pCO2 47 mmHg (35-48); Venous Blood Gas pH 7.43 (7.32-7.43); Venous Blood Gas pO2 161 mmHg (30-50)
--- NOTE | 2025-02-07 17:00 | PTCARENOTE ---
on and off bipap at times throughout the day, presently with bipap on, watching TV, visiting with family. I/O collected.
[2025-02-07] MEDS: LOVENOX 40 MG SC (17:43)
[2025-02-07] MEDS: NON-FORMULARY ITEM 1 SPRAY NASAL (20:21)
--- NOTE | 2025-02-07 21:10 | PTCARENOTE ---
Assumed care of pt at 1900. Pt A/O x4, able to make needs known, daughter currently at bedside to help with communication. Pt able to tolerate being off bipap (he is currently on 13/01 with 1LPM bled in), and is able to speak, has come up with a
system of blinking to use with his daughter to determine if he needs/doesn't need the bipap mask, if he is unable to speak. Special call dumont in place that pt can tap with his head. No c/o pain. Pt and daughter are agreeable to more frequent
repositioning this shift. Pt turned, all dressings intact, back wiped down and new draw sheet and pad placed under patient. Attempted to turn pt to his left side but the pillow was too much and caused his lower back to be uncomfortable, ended up
placing an air cushion under pt's bottom and he felt that this was more comfortable. Pt still has the bariatric air cushion behind his upper back. Fiber filled boots in place and arms placed on pillows for comfort. ST on monitor, low 100s, will go
up to 120s-130s when he is off the bipap mask and working harder to breathe. On mask SpO2 is 97%, will go down to 92-93% off mask. Able to take pills whole without any issue, given PRN Ativan as well (see EMAR). See nursing shift assessment
flowsheet for further physical assessment details. Pt is IMU level of care.
[2025-02-08] VITALS (19 sets, daily range): BP systolic 96–137; BP diastolic 71–92; PULSE 65–111; O2SAT 94; BMI 17.5
[2025-02-08] MEDS: SOLU-MEDROL PF 40 MG IV ×2 (05:10→17:08)
[2025-02-08 05:24] LABS: Venous Blood Gas B.E. 6.3 mmol/L (-4 to +4); Venous Blood Gas HCO3 29.4 mmol/L (22-27); Venous Blood Gas O2 Sat % 99.1 %; Venous Blood Gas pCO2 36 mmHg (35-48); Venous Blood Gas pH 7.52 (7.32-7.43); Venous Blood Gas pO2 241 mmHg (30-50)
[2025-02-08 05:41] LABS: % Basophils 0.1 % (0-2); % Eosinophils 0.1 % (0-6); % Immature Granulocytes 0.4 % (0-0.5); % Lymphocytes 2.4 % (20.5-51.1); % Monocytes 3.6 % (1.7-9.3); % Neutrophils 93.4 % (42.2-75.2); Absolute Immature Granulocytes 0.1 10^3/uL (0-0.05); Absolute Lymphocytes 0.3 10^3/uL (1.2-3.4); Absolute Monocytes 0.5 10^3/uL (0.1-0.6); Absolute Neutrophils 12.8 10^3/uL (1.4-6.5); Hematocrit 34.2 % (39.0-52.0); Hemoglobin 11.6 g/dL (13.0-18.0); Mean Corp Hgb Conc. 33.9 g/dL (33.0-37.0); Mean Corpuscular Hgb 31.7 pg (27.0-31.0); Mean Corpuscular Volume 93.4 fL (80.0-94.0); Mean Platelet Volume 10.5 fL (7.4-10.4); Nucleated Red Blood Cells % 0 % (-); Platelet Count 202 10^3/uL (130-400); Red Blood Cell Count 3.66 10^6/uL (4.70-6.10); Red Cell Dist. Width 12.4 % (11.5-14.5); White Blood Cell Count 13.7 10^3/uL (4.8-10.8)
[2025-02-08 05:57] LABS: Blood Urea Nitrogen 12 mg/dl (9-20); Calcium 9.8 mg/dl (8.4-10.2); Carbon Dioxide 28 mmol/L (22-30); Chloride 108 mmol/L (98-107); Estimated Creatinine Clearance 115 ml/min; Glucose 177 mg/dl (70-99); Potassium 4.5 mmol/L (3.5-5.1); Sodium 137 mmol/L (135-145); eGFR > 60.00
--- NOTE | 2025-02-08 06:35 | PTCARENOTE ---
Pt transferred to IMU room 3356 via bed at approx 0625. Report given to TWAN Kwan. All belongings sent with patient, ex- Roxie helped to transport many of the belongings. Pt's own medications, Flonase and Riluzole, moved to his new room.
--- NOTE | 2025-02-08 07:32 | W.PN.HOSP.TC ---
Today's Communication/Plan
-
see plan
Assessment / Plan
Assessment / Plan
IMPRESSION:
Patient with ALS and progressive respiratory failure who appears to have a rapid decline in his respiratory function over the last 24 hours initiated by an episode of sore throat and postnasal drip. Patient is unable to cough and has a chest x-ray
that was clear. He has mild leukocytosis to 12.8. Overall picture is consistent with acute bronchitis exacerbating underlying restrictive/mechanical lung failure due to his ALS. He has no volume overload. Negative viral panel. Negative
troponin. No lower extremity swelling or calf tenderness. He has improved with additional support with BiPAP.
PLAN:
Hypoxic respiratory failure -mild hypercapnia, suspect viral illness/postnasal drip resulting in poor clearance/ mucus plugging
- continue BiPAP, admitted to IMU
- Solu-Medrol, [id number] nebs and as needed albuterol
- D-dimer - negative
- Procalcitonin negative
- N.p.o. pending reevaluation; follow up if tolerates time off BiPAP for meals today
- Maintenance fluids
- Pulmonary consult
DVT prophylaxis�Lovenox subcu
CODE STATUS patient is full code. He has been DNR in past. Patient's son's birthday is on February 13 and he wants to remain full code until post birthday
51 minutes spent on patient care
Anticipated Discharge: > 48 hours
Subjective/Interval History
-
Date of Service: February 08, 2025
tolerated being off biPAp intermittently yesterday
oxygen needs weaning down
Objective Data
-
Labs:
Laboratory Results
02/08/25 02/08/25
05:19 05:25
WBC 13.7 H
Hgb 11.6 L
Hct 34.2 L
Plt Count 202
Sodium 137
Potassium 4.5
Chloride 108 H
Carbon Dioxide 28
BUN 12
Creatinine 0.2 L
Glucose 177 H
Calcium 9.8
Vital Signs:
Vital Signs
Temp Pulse Resp BP Pulse Ox
97.6 F 73 16 97/76 99
02/08/25 03:34 02/08/25 06:00 02/08/25 06:00 02/08/25 06:00 02/08/25 06:00
I&O
02/07/25 02/08/25 02/09/25
06:59 06:59 06:59
Intake Total 450 / 550 2650 / 2650
Output Total 550 / 550 1650 / 1650
Balance -100 / 0 1000 / 1000
Review of Systems
-
History Source: Patient
All other systems: Reviewed and negative
Physical Exam
-
General: No Apparent Distress and Other (on BiPAP)
HEENT: PERRLA
Respiratory: Negative Wheezes
Cardiac: Regular Rhythm and S1/S2
GI: Soft and Nontender
Musculoskeletal: No Edema
Skin: Warm and Dry; Negative Rash
Neuro: AO x 3
Psych: Calm
Data Reviewed
-
Diagnostic Radiology: Report Reviewed by me
Labs: Labs Reviewed by me
[2025-02-08] MEDS: DUONEB 3 ML INH ×2 (07:40→20:18)
[2025-02-08] MEDS: D5LR 1000 IV (08:52)
[2025-02-08] MEDS: CELEBREX 200 MG PO ×2 (08:53→20:03)
[2025-02-08] MEDS: NON-FORMULARY ITEM 1 SPRAY NASAL (08:54)
[2025-02-08] MEDS: NON-FORMULARY ITEM 50 MG PO (08:54)
[2025-02-08] MEDS: ATIVAN 0.5 MG PO ×3 (09:01→20:08)
--- NOTE | 2025-02-08 10:06 | VNURNOTE ---
Addendum entered by Angelina Sherwood RN 02/08/25 16:14:
Called daughter to follow up on [facility] decision. No answer,unable to leave message due to mailbox full. Will follow up tomorrow.
Original Note:
Home Health Liaison spoke with patient's daughter Kimberlee to discuss [facility] nurse/therapy, visits, schedule and homebound status. Daughter understands that visits at home will be 2-3 x per week to assess and teach medical management. Daughter stated
[employer] patient was current with once/week ALS OT program through [facility]. Daughter thinks they bill through insurance. Explained to daughter that pt would need to put OT on hold while signs on with [facility]. [facility] can offer senior living, PT,
and OT in the home. Daughter will speak with pt and determine if he's willing to put outpt OT on hold. Daughter is aware that [facility] will contact them for start of care in 1-2 days after discharge from .
Will follow up with daughter to determine if they'd like to proceed with [facility], PT, OT.
[2025-02-08] MEDS: DUONEB INH (11:30)
--- NOTE | 2025-02-08 11:33 | PN.CDI ---
CDI
- -
CDI:
Physician Documentation Request
Admit Date: 02/06/25 23:55
Dear Doctor Geraldine,
Please review the following and provide your response in the progress notes.
Clinical Indicators:
- On admission: WBC 12.8, HR 100-120s, RR 20-30s
- 5L IVF given
- 02/08 PN 'suspect viral illness/postnasal drip resulting in poor clearance/ mucus plugging'
- 'acute bronchitis exacerbating underlying restrictive/mechanical lung failure due to his ALS'
Please clarify which most accurately describes the patient:
Sepsis due to acute bronchitis
Systemic manifestations of infection, with 2 or more SIRS criteria which include:
Fever > 100.4 degrees F or hypothermia < 96.8 degrees F
Leukocytosis - WBC > 12,000 or leukopenia, WBC < 4,000 or > 10% bands
Tachycardia - > 90 beats per minute
Tachypnea - RR > 20 breaths per minute or PaCO2 < 32 mmHg
Source: Merck Manual 2013
Indicate the known or suspected organism
Indicate the known or suspected underlying infection, such as UTI, pneumonia or cellulitis
Indicate if a suspected bacterial infection of unknown source
Indicate if associated with an implanted device such as a F/C, PICC line, orthopedic hardware etc.
Indicate if there is associated organ dysfunction, such as renal or respiratory failure
SIRS due to a non-infectious source
Indicate the known or suspected etiology
Indicate if there is associated organ dysfunction, such as renal or respiratory failure
Other (please specify)
Use of terms such as suspected, likely, concern for, or probable (associated with a specific diagnosis that is being evaluated, monitored, or treated as if it exists) are acceptable and can be coded in the inpatient setting, when documented at the
time of discharge.
Thank you,
Phoenix Jacobsen RN
CDI Specialist
Please use your independent medical judgment in providing your response.
--- NOTE | 2025-02-08 11:37 | PN.CDI ---
CDI
- -
CDI:
Physician Documentation Request
Admit Date: 02/06/25 23:55
Dear Doctor Geraldine,
Please review the following and provide your response in the progress notes.
Clinical Indicators:
Height: 6'1
Weight: 132 lbs
BMI: 17.5
Other Clinical Notes: Tablet Coater notes underweight
If possible, please provide an associated diagnosis related to the abnormal BMI, such as:
Underweight
Cachectic
Other (please specify)
Use of terms such as suspected, likely, concern for, or probable (associated with a specific diagnosis that is being evaluated, monitored, or treated as if it exists) are acceptable and can be coded in the inpatient setting, when documented at the
time of discharge.
Thank you,
Phoenix Jacobsen RN
CDI Specialist
Please use your independent medical judgment in providing your response.
--- NOTE | 2025-02-08 11:43 | PN.CDI ---
CDI
- -
CDI:
Physician Documentation Request
Admit Date: 02/06/25 23:55
Dear Doctor Geraldine,
Please review the following and provide your response in the progress notes.
Clinical Indicators:
- Patient with ALS
- RN note 'Pt cannot move his extremities and is flaccid throughout'
- Complete care for turning, feeding, hygiene
Please provide further specificity as noted below:
Functional quadriplegia (complete immobility due to severe physical disability or frailty)
Other (please specify)
Use of terms such as suspected, likely, concern for, or probable (associated with a specific diagnosis that is being evaluated, monitored, or treated as if it exists) are acceptable and can be coded in the inpatient setting, when documented at the
time of discharge.
Thank you,
Phoenix Jacobsen RN
CDI Specialist
Please use your independent medical judgment in providing your response.
--- NOTE | 2025-02-08 12:38 | W.PN.PUL3 ---
Today's Communication / Plan
-
NIF and VC continued TID
Would continue BIPAP nightly and 2 hours on/off during the day
We discussed role of trach in this situation, patient and family will think about it
If [facility] will arrange
Assessment
-
59-year-old male with a past medical history of ALS who presents with sudden shortness of breath. Patient has had ALS for about 5 years now and his respiratory status has been declining over the last year. He does use noninvasive ventilation at
home typically with sleep/naps, and uses a volume-cycled assist-control mode during the day via a mouthpiece with a tidal volume of thousand and an I time of 0.8 seconds. Also has his own cough assist device which helps him clear his phlegm. He
suffers from allergies and increased phlegm/chest congestion/mucous plugging; of note, he had an episode in Spring 2023 where he had a mucous plug. Now, over the weekend he started to develop a sore throat and then one day prior to arrival he
developed sudden shortness of breath. He checked his pulse oximetry at home and it was 82%, and he normally is in the mid-90s. He does feel like sometimes he has spasms in his airway. 911 was called and patient was placed onto BiPAP en route here
to the hospital at [place]. In the ER he was afebrile to 97.7 �F, tachycardic to 117, tachypneic to 30 breaths/min, BP 151/106 and saturating 99% on 8 L/min. Initial labs showed mild leukocytosis to 12.8, Hb 15, calcium 10.6, troponin negative
at <0.012, proBNP negative at <20, procalcitonin negative at <0.05 and COVID-19 antigen negative. Flu swab negative and CXR showed clear lungs with no acute cardiopulmonary pathology. In the ER he was given Decadron 10 mg, albuterol, DuoNebs and 1
L NS 0.9%. He was placed onto BiPAP 16/5 bled with 10 L/min, and was admitted to the IMU for further care. Pulmonary service now consulted for additional management/recommendations.
Acute respiratory failure with hypoxia + hypercapnia
Leukocytosis
ALS
Non-invasive ventilation dependent with sleep due to neuromuscular disease (ALS)
Chronic conditions AESTHETICIAN:
ALS dependent on NIV at home
Seasonal allergies
Plan:
Currently remains on BIPAP continuously
NIF -10 x 3 measures, which places patient at immediate risk for impending respiratory failure
Would minimize breaks from PAP therapy and keep NPO
Continue NIF and VC reports TID
Reviewed with RT
Can continue BIPAP every 2 hours during daytime
Seems that patient had increased mucus production and developed a mucous plug +/- broncho/laryngospasm which is what led him to his current hospitalization
He is now requiring supplemental oxygen and usually he is not on oxygen at all during the day or during sleep
Continue with supplemental O2 during the day with nasal cannula, and when he wants to nap or when he goes to sleep, then place onto BiPAP using the patient's home mask
He does have his own machine here if he would rather use this during sleep, however unsure if we can bleed supplemental O2 through his machine
At home, he uses pressure support at night with safety Vt: 520cc, PEEP: 4, PS: 4, respiratory rate: 14, Ti: 0.9 0 1.4 seconds, and T-apnea: 25 seconds
During the day he uses a mouthpiece and the ventilator setting changes to ACV with VT set at 1000cc, Ti: 0.8 seconds, respiratory rate: 15 and I:E ratio of 1:3
Continue with aspiration precautions and maintain saturations >90-94%
ABG showing resp alkalosis
He remains full code
Would need speech eval to clear for diet once resp strength recovers
Keep NPO
Aspiration precautions
Patient also has a cough assist device with him which we should use if needed
He is not currently wheezing nor does he carry history of asthma hence unclear if the systemic steroids are needed --> continue for now but if patient continues to clinically improve then would rapidly taper off
Continue with DuoNeb QID, as the patient's daughter, Kimberlee, says that she thinks these are occasionally helping him breathe better
prn nebulized bronchodilators - not currently bronchospastic
Patient also has postnasal drip and he can use Flonase that family has brought in for him, 1 spray per nostril BID or 2 sprays per nostril once daily
- Replete electrolytes with K>4, Mg>2
- Trend H/H and transfuse if needed to keep Hb>7g/dL; keep plt>20k, unless there is concern for bleeding then keep plt>50k
- Maintain euglycemia with goal BG >100 and <180
- DVT ppx: LMWH
Code status: Full code --> he says that his son's birthday is upcoming, so he wants to remain full code at least until after this event. He understands that if he were to deteriorate and require intubation that it would undoubtedly lead to
tracheostomy. Unclear if he would want to live like that. This will be an ongoing discussion depending on his continued hospital course.
Of note, his air brake mechanic is Dr. Ranulfo Hodge at [place]. His PCP is also his neurologist (Dr. Yoselin Petty) who sees the patient at the ALS center at [place].
Once patient is discharged, he should continue following up with his providers at [place]. If he wishes to see a pulmonary team closer to [place], he is always welcome to follow-up with us at the [facility] office.
We had a prolonged discussion today regarding tracheostomy especially if his NIF and VC are showing poor progress. His family was present for this discussion. He is very realistic in terms of his ALS and when he is no longer able to communicate he
is prepared to go on hospice. I do think, he could potentially do well with trach and PMV use with speech therapy. I have consulted speech to give him an idea of what that would entail. This will be a continued discussion.
Data:
CXR 02/06/2025: No acute cardiopulmonary process
-----
Total time spent today was 61 minutes for this encounter. Time includes reviewing laboratory test/imaging results, reviewing pertinent medical records, obtaining and reviewing medical history, performing an appropriate exam, ordering medications,
tests and procedures. Time also includes documentation of this encounter, coordinating patient care and communicating with other healthcare professionals. Total time does not include separately billed tests performed on this date of service.
Subjective Data
-
Date of Service:
Date of Service: February 08, 2025
Chief Complaint: Pulmonary Follow Up
Subjective:
Remains in chair, using mouthpiece connected to his NIV
Tolerating BIPAP otherwise
NIF remains poor
Objective Data
Data Reviewed
Vital Signs / I&O / Oxygen:
Vital Signs
Temp Pulse Resp BP Pulse Ox
97.4 F 73 16 97/76 99
02/08/25 07:05 02/08/25 06:00 02/08/25 06:00 02/08/25 06:00 02/08/25 06:00
Intake and Output
02/07/25 02/08/25 02/09/25
06:59 06:59 06:59
Intake Total 450 / 550 2650 / 2650
Output Total 550 / 550 1650 / 1650
Balance -100 / 0 1000 / 1000
SaO2 99
Nasal Cannula flow liters per 8
minute
Physical Exam
General: Comfortable and Other (able to speak, gasping at times)
HEENT: Normocephalic, Anicteric and Moist Mucous Membranes
Cardiovascular: S1-S2 and Regular Rhythm
Respiratory: Clear, Non-Labored Respirations and Other (diminished overall)
GI: Soft, Non Distended and Non Tender
Neurology: Awake, Alert, Oriented and Other (profound paralysis of most of his extremities, but can open eyes/verbalize/shake head)
Skin: Warm, Dry and Good Color
Labs/Micro/Reports
Lab Data
02/08/25 05:25
02/08/25 05:19
Microbiology
02/06/25 21:40 Nasal Swab Influenza Types A & B (TALI) - Final
Negative for Influenza A & B, NAAT
Negative results must be combined with clinical observations
and patient history.
Nucleic Acid Amplification test (NAAT)performed on the
[employer] platform.
[2025-02-08 13:35] LABS: Phosphorus 2.6 mg/dl (2.5-4.5)
[2025-02-08] MEDS: LOVENOX 40 MG SC (17:07)
--- NOTE | 2025-02-08 19:29 | PTCARENOTE ---
AAO- pt wanted to get oob today to bsc for bowel elimination and then to his wheel chair. Orders obtained for PT- they assisted with that task today oob for hours. Declined cpap this afternoon as to talk to friend . made aware by RT. Back to
bed this pm with son in law assisted wc to bed- fully bathed, air cushions under him as he requested, fiber boots on and arms elevated . RT placed on cpap but his son then came and family wanted him off cpap again. He is agreeable to go back on
this pm when family leaves. LC/ RA, NSR on tele. VSS. Denies pain.
[2025-02-08] MEDS: NON-FORMULARY ITEM 1 MG PO (20:04)
[2025-02-08] MEDS: NON-FORMULARY ITEM NASAL (20:05)
[2025-02-09] VITALS (14 sets, daily range): BP systolic 51–142; BP diastolic 25–91; PULSE 1–100
[2025-02-09] MEDS: SOLU-MEDROL PF 40 MG IV (05:03)
[2025-02-09 05:37] LABS: % Basophils 0.1 % (0-2); % Eosinophils 0.1 % (0-6); % Immature Granulocytes 0.4 % (0-0.5); % Monocytes 4.4 % (1.7-9.3); Absolute Immature Granulocytes 0.1 10^3/uL (0-0.05); Absolute Lymphocytes 0.4 10^3/uL (1.2-3.4); Absolute Monocytes 0.6 10^3/uL (0.1-0.6); Absolute Neutrophils 12.5 10^3/uL (1.4-6.5); Hematocrit 38.2 % (39.0-52.0); Hemoglobin 12.6 g/dL (13.0-18.0); Mean Corpuscular Hgb 31.3 pg (27.0-31.0); Mean Corpuscular Volume 94.8 fL (80.0-94.0); Mean Platelet Volume 10.5 fL (7.4-10.4); Nucleated Red Blood Cells % 0 % (-); Platelet Count 209 10^3/uL (130-400); Red Blood Cell Count 4.03 10^6/uL (4.70-6.10); Red Cell Dist. Width 12.5 % (11.5-14.5); White Blood Cell Count 13.5 10^3/uL (4.8-10.8)
[2025-02-09 06:04] LABS: Blood Urea Nitrogen 13 mg/dl (9-20); Calcium 10.5 mg/dl (8.4-10.2); Carbon Dioxide 28 mmol/L (22-30); Chloride 107 mmol/L (98-107); Estimated Creatinine Clearance 115 ml/min; Glucose 128 mg/dl (70-99); Potassium 4.4 mmol/L (3.5-5.1); Sodium 140 mmol/L (135-145); eGFR > 60.00
[2025-02-09] MEDS: DUONEB 3 ML INH ×2 (07:22→19:43)
--- NOTE | 2025-02-09 07:23 | PTCARENOTE ---
Caring for pt overnight. aaox3, family at bedside. NSR/SB. VSS. Wore bipap overnight. NPO. afebrile. Caregiver in room overnight. NO other issues. will monitor.
--- NOTE | 2025-02-09 08:24 | W.PN.HOSP.TC ---
Addendum entered and electronically signed by Sejal Chandler MD 02/09/25 08:27:
sIRS 2/2 acute bronchitis
-see plan below
Underweight
-appreciate Dietary
functional Quadriplegia
patient has wheelchair in room
Original Note:
Today's Communication/Plan
-
see plan
Assessment / Plan
Assessment / Plan
IMPRESSION:
Patient with ALS and progressive respiratory failure who appears to have a rapid decline in his respiratory function over the last 24 hours initiated by an episode of sore throat and postnasal drip. Patient is unable to cough and has a chest x-ray
that was clear. He has mild leukocytosis to 12.8. Overall picture is consistent with acute bronchitis exacerbating underlying restrictive/mechanical lung failure due to his ALS. He has no volume overload. Negative viral panel. Negative
troponin. No lower extremity swelling or calf tenderness. He has improved with additional support with BiPAP.
PLAN:
Hypoxic respiratory failure -mild hypercapnia, suspect viral illness/postnasal drip resulting in poor clearance/ mucus plugging
-admitted to IMU
-appreciate Pulmonary
-daily MIF/VC
-will decrease IV Solumedrol to daily from BID
- D-dimer - negative
- Procalcitonin negative
- N.p.o. pending reevaluation; ST Ev today
-appreciate Pulmonary discussion regarding trach with patient
DVT prophylaxis�Lovenox subcu
CODE STATUS patient is full code. He has been DNR in past. Patient's son's birthday is on February 13 and he wants to remain full code until post birthday
51 minutes spent on patient care
Anticipated Discharge: > 48 hours
Subjective/Interval History
-
Date of Service: February 09, 2025
felt better being in chair yesterday
wants to eat today
Objective Data
-
Labs:
Laboratory Results
02/09/25
05:21
WBC 13.5 H
Hgb 12.6 L
Hct 38.2 L
Plt Count 209
Sodium 140
Potassium 4.4
Chloride 107
Carbon Dioxide 28
BUN 13
Creatinine 0.3 L
Glucose 128 H
Calcium 10.5 H
Vital Signs:
Vital Signs
Temp Pulse Resp BP Pulse Ox
97.0 F 61 18 114/91 100
02/09/25 03:00 02/09/25 07:23 02/09/25 07:23 02/09/25 04:00 02/09/25 07:23
I&O
02/08/25 02/09/25 02/10/25
06:59 06:59 06:59
Intake Total 2650 / 2750 1900 / 1900
Output Total 1650 / 1650 475 / 475
Balance 1000 / 1100 1425 / 1425
Review of Systems
-
History Source: Patient
All other systems: Reviewed and negative
Physical Exam
-
General: No Apparent Distress and Other (on BiPAP)
HEENT: PERRLA
Respiratory: Negative Wheezes
Cardiac: Regular Rhythm and S1/S2
GI: Soft and Nontender
Musculoskeletal: No Edema
Skin: Warm and Dry; Negative Rash
Neuro: AO x 3
Psych: Calm
Data Reviewed
-
Diagnostic Radiology: Report Reviewed by me
Labs: Labs Reviewed by me
--- NOTE | 2025-02-09 08:58 | W.PN.PUL3 ---
Today's Communication / Plan
-
NIF remains poor but family aware and are comfortable with continuing his current regiment at home
FEES study and diet recs prior to discharge per speech
They would like to FU in our office for continued discussions, will set up FU in 1-2 weeks
Otherwise, ok for d/c planning per team
Assessment
-
59-year-old male with a past medical history of ALS who presents with sudden shortness of breath. Patient has had ALS for about 5 years now and his respiratory status has been declining over the last year. He does use noninvasive ventilation at
home typically with sleep/naps, and uses a volume-cycled assist-control mode during the day via a mouthpiece with a tidal volume of thousand and an I time of 0.8 seconds. Also has his own cough assist device which helps him clear his phlegm. He
suffers from allergies and increased phlegm/chest congestion/mucous plugging; of note, he had an episode in Spring 2023 where he had a mucous plug. Now, over the weekend he started to develop a sore throat and then one day prior to arrival he
developed sudden shortness of breath. He checked his pulse oximetry at home and it was 82%, and he normally is in the mid-90s. He does feel like sometimes he has spasms in his airway. 911 was called and patient was placed onto BiPAP en route here
to the hospital at [place]. In the ER he was afebrile to 97.7 �F, tachycardic to 117, tachypneic to 30 breaths/min, BP 151/106 and saturating 99% on 8 L/min. Initial labs showed mild leukocytosis to 12.8, Hb 15, calcium 10.6, troponin negative
at <0.012, proBNP negative at <20, procalcitonin negative at <0.05 and COVID-19 antigen negative. Flu swab negative and CXR showed clear lungs with no acute cardiopulmonary pathology. In the ER he was given Decadron 10 mg, albuterol, DuoNebs and 1
L NS 0.9%. He was placed onto BiPAP 16/5 bled with 10 L/min, and was admitted to the IMU for further care. Pulmonary service now consulted for additional management/recommendations.
Acute respiratory failure with hypoxia + hypercapnia
Leukocytosis
ALS
Non-invasive ventilation dependent with sleep due to neuromuscular disease (ALS)
Chronic conditions CONTENT SPECIALIST:
ALS dependent on NIV at home
Seasonal allergies
Plan:
Currently remains on BIPAP continuously
NIF -10 x 3 measures, which places patient at immediate risk for impending respiratory failure
Would minimize breaks from PAP therapy
Continue NIF and VC reports TID
Reviewed with RT
Can continue BIPAP every 2 hours during daytime
Speech therapy, planning for FEES procedure
Will then advanced diet based on recs
Aspiration precautions maintained
Family has also considered feeding tube
Seems that patient had increased mucus production and developed a mucous plug +/- broncho/laryngospasm which is what led him to his current hospitalization
He is now requiring supplemental oxygen and usually he is not on oxygen at all during the day or during sleep
Continue with supplemental O2 during the day with nasal cannula, and when he wants to nap or when he goes to sleep, then place onto BiPAP using the patient's home mask
He does have his own machine here if he would rather use this during sleep, however unsure if we can bleed supplemental O2 through his machine
I reviewed his regiment with family, they are comfortable with his care at home
At home, he uses pressure support at night with safety Vt: 520cc, PEEP: 4, PS: 4, respiratory rate: 14, Ti: 0.9 0 1.4 seconds, and T-apnea: 25 seconds
During the day he uses a mouthpiece and the ventilator setting changes to ACV with VT set at 1000cc, Ti: 0.8 seconds, respiratory rate: 15 and I:E ratio of 1:3
Continue with aspiration precautions and maintain saturations >90-94%
ABG showing resp alkalosis
He remains full code
Patient also has a cough assist device with him which we should use if needed
He is not currently wheezing nor does he carry history of asthma hence unclear if the systemic steroids are needed
Continue for now but if patient continues to clinically improve then would rapidly taper off
Continue with DuoNeb LAURA, as the patient's daughter, Kimberlee, says that she thinks these are occasionally helping him breathe better
prn nebulized bronchodilators - not currently bronchospastic
Patient also has postnasal drip and he can use Flonase that family has brought in for him, 1 spray per nostril BID or 2 sprays per nostril once daily
Code status: Full code --> he says that his son's birthday is upcoming, so he wants to remain full code at least until after this event. He understands that if he were to deteriorate and require intubation that it would undoubtedly lead to
tracheostomy. Unclear if he would want to live like that. This will be an ongoing discussion depending on his continued hospital course.
Of note, his industrial hygiene engineer is Dr. Ranulfo Hodge at [place]. His PCP is also his neurologist (Dr. Yoselin Petty) who sees the patient at the ALS center at [place].
Once patient is discharged, he should continue following up with his providers at [place]. If he wishes to see a pulmonary team closer to [place], he is always welcome to follow-up with us at the [facility] office.
We had a prolonged discussion today regarding tracheostomy especially if his NIF and VC are showing poor progress. His family was present for this discussion. He is very realistic in terms of his ALS and when he is no longer able to communicate he
is prepared to go on hospice. I do think, he could potentially do well with trach and PMV use with speech therapy. I have consulted speech to give him an idea of what that would entail. This will be a continued discussion.
We discussed again and family is ok with continued trach discussion as OP with our office.
Discharge panning otherwise per team
Data:
CXR 02/06/2025: No acute cardiopulmonary process
-----
Total time spent today was 58 minutes for this encounter. Time includes reviewing laboratory test/imaging results, reviewing pertinent medical records, obtaining and reviewing medical history, performing an appropriate exam, ordering medications,
tests and procedures. Time also includes documentation of this encounter, coordinating patient care and communicating with other healthcare professionals. Total time does not include separately billed tests performed on this date of service.
Subjective Data
-
Date of Service:
Date of Service: February 09, 2025
Chief Complaint: Pulmonary Follow Up
Subjective:
No events ON, remains on BIPAP nightly/daytime use
NIF remains -10
No new complaints
Objective Data
Data Reviewed
Vital Signs / I&O / Oxygen:
Vital Signs
Temp Pulse Resp BP Pulse Ox
97.0 F 61 18 114/91 100
02/09/25 03:00 02/09/25 07:23 02/09/25 07:23 02/09/25 04:00 02/09/25 07:23
Intake and Output
02/08/25 02/09/25 02/10/25
06:59 06:59 06:59
Intake Total 2650 / 2750 1900 / 1900
Output Total 1650 / 1650 475 / 475
Balance 1000 / 1100 1425 / 1425
SaO2 100
Nasal Cannula flow liters per 8
minute
Physical Exam
General: Comfortable and Other (able to speak, gasping at times)
HEENT: Normocephalic, Anicteric and Moist Mucous Membranes
Cardiovascular: S1-S2 and Regular Rhythm
Respiratory: Clear, Non-Labored Respirations and Other (diminished overall)
GI: Soft, Non Distended and Non Tender
Neurology: Awake, Alert, Oriented and Other (profound paralysis of most of his extremities, but can open eyes/verbalize/shake head)
Skin: Warm, Dry and Good Color
Labs/Micro/Reports
Lab Data
02/09/25 05:21
02/09/25 05:21
Microbiology
02/06/25 21:40 Nasal Swab Influenza Types A & B (TALI) - Final
Negative for Influenza A & B, NAAT
Negative results must be combined with clinical observations
and patient history.
Nucleic Acid Amplification test (NAAT)performed on the
[employer] platform.
--- NOTE | 2025-02-09 10:00 | PTCARENOTE ---
Patient AAOx3. VSS. Using breath assistance device before talking. RA. Patient making needs known. Family at bedside offering great support. Will closely monitor.
[2025-02-09] MEDS: CELEBREX 200 MG PO ×2 (10:16→20:53)
[2025-02-09] MEDS: NON-FORMULARY ITEM 1 SPRAY NASAL (10:17)
[2025-02-09] MEDS: NON-FORMULARY ITEM 50 MG PO (10:17)
--- NOTE | 2025-02-09 10:23 | PTOTSP ---
Speech Language Pathology
Pt seen for communication evaluation. Pt currently communicating via verbalization. Adequate respiration phonation coordination noted with appropriate phrasing based on amount of breath support. 100% intelligible in both known and unknown
contexts. Pulm requested pt/family education on eating/communicating with a trach. Discussed trach anatomy and physiology, including cuff and speaking valve. Demonstrated on Tracheostomy Observation Model ([place]). Also provided handouts on
breathing/speaking with trach/speaking valve. Assigned trach education videos on [employer]. Discussed that eating/drinking and speaking are all possibilities with trach. Did discuss that as ALS progresses, pt will reach a point where
breath support will not allow for vocalization.
Pt also seen for clinical bedside swallow evaluation. Seen with sips of coffee provided by daughter and meds whole with liquid. Pt took all 3 pills at once with sip of liquid via straw with no overt signs of aspiration. Unable to rule out silent
aspiration bedside. Pt and daughter denied any difficulty swallowing or prior PNA.
Recommend:
(1) Flexible endoscopic evaluation of swallowing (FEES)
(2) NPO until FEES completed
(3) Meds as tolerated
(4) POTATO LOADER to continue to follow
[2025-02-09] MEDS: ATIVAN 0.5 MG PO ×4 (10:27→21:07)
--- NOTE | 2025-02-09 12:04 | VNURNOTE ---
Met with patient and daughter Kimberlee at bedside. Both understand to put [facility] outpt OT on hold. [facility] referral accepted in [facility].
--- NOTE | 2025-02-09 14:35 | CM ---
IV/Steroids. Pulmonary discussed possibility of trach to patient and family. Discharge POC: Anticipate return home with caregivers from 6:00 AM to 11:00PM. Lives w daughter and [facility]. [facility] RN after discharge.
[2025-02-09] MEDS: LOVENOX 40 MG SC (17:53)
[2025-02-09] MEDS: NON-FORMULARY ITEM 1 MG PO (20:54)
[2025-02-09] MEDS: NON-FORMULARY ITEM NASAL (20:54)
[2025-02-10] VITALS: BP 100/82
[2025-02-10 02:00] VITALS: BP 112/81
[2025-02-10 04:00] VITALS: BP 113/86
--- NOTE | 2025-02-10 05:21 | PTCARENOTE ---
Caring for pt overnight. aaox3, pleasant, family at bedside. Repositioned frequently, utilizing fiber boots, air cushions under buttocks and back. Pills whole with water. NSR. Remains RA, bipap [id number] & wore bipap overnight, no issues. Kept sat
>92%. NO other issues at this time, will monitor.
[2025-02-10 06:00] VITALS: BP 113/83
[2025-02-10] MEDS: DUONEB 3 ML INH (06:54)
--- NOTE | 2025-02-10 07:41 | W.PN.HOSP.TC ---
Today's Communication/Plan
-
OK for DC today
Assessment / Plan
Assessment / Plan
IMPRESSION:
Patient with ALS and progressive respiratory failure who appears to have a rapid decline in his respiratory function over the last 24 hours initiated by an episode of sore throat and postnasal drip. Patient is unable to cough and has a chest x-ray
that was clear. He has mild leukocytosis to 12.8. Overall picture is consistent with acute bronchitis exacerbating underlying restrictive/mechanical lung failure due to his ALS. He has no volume overload. Negative viral panel. Negative
troponin. No lower extremity swelling or calf tenderness. He has improved with additional support with BiPAP.
PLAN:
Hypoxic respiratory failure -mild hypercapnia, suspect viral illness/postnasal drip resulting in poor clearance/ mucus plugging
-admitted to IMU
- D-dimer - negative
- Procalcitonin negative
-appreciate Pulmonary
-daily MIF/VC - patient at baseline, has BiPAP at home
-now off steroids
-s/p ST Eval - diet ordered
-appreciate Pulmonary discussion regarding trach with patient; patient to follow up in clinic next week
DVT prophylaxis�Lovenox subcu
CODE STATUS patient is full code. He has been DNR in past. Patient's son's birthday is on February 13 and he wants to remain full code until post birthday
51 minutes spent on patient care
Anticipated Discharge: Today
Subjective/Interval History
-
Date of Service: February 10, 2025
no new complaints
no oxygen overnight, on BiPAP
Objective Data
-
Vital Signs:
Vital Signs
Temp Pulse Resp BP Pulse Ox
98.2 F 98 18 113/83 99
02/10/25 03:00 02/10/25 06:55 02/10/25 06:55 02/10/25 06:00 02/10/25 06:55
I&O
02/09/25 02/10/2502/11/25
06:59 06:59 06:59
Intake Total 1899 / 190
Output Total 475 / 475 1200 / 1200
Balance 1425 / 1425 -1200 / -1200
Review of Systems
-
History Source: Patient
All other systems: Reviewed and negative
Physical Exam
-
General: No Apparent Distress and Other (on BiPAP)
HEENT: PERRLA
Respiratory: Negative Wheezes
Cardiac: Regular Rhythm and S1/S2
GI: Soft and Nontender
Musculoskeletal: No Edema
Skin: Warm and Dry; Negative Rash
Neuro: AO x 3
Psych: Calm
Data Reviewed
-
Diagnostic Radiology: Report Reviewed by me
Labs: Labs Reviewed by me
--- NOTE | 2025-02-10 07:47 | W.DS.TRANS ---
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
-
Discharge Instructions:
Discharge Diagnosis/Procedures hypercapnic respiratory failure requiring BiPAP
Diet Other diet
Additional Diets Thin Liquids via SINGLE SIPS, IDDSI Level 6 (
Soft/Bite Sized Solids)
Activity As tolerated
Instructions:
Stand-Alone Forms:
Changes to Home Medications: No
Discharge Medications:
DC Medications w/original date entered in [facility]
celecoxib 200 mg capsule (Celebrex) 200 mg PO BID Pain 02/06/25
fluticasone propionate 50 mcg/actuation nasal spray,suspension 1 spray intranasal BID Allergies 02/06/25
lorazepam 0.5 mg tablet (Ativan) 0.5 mg PO Q3H PRN anxiety 02/06/25
riluzole 50 mg tablet 50 mg PO BID ALS 02/06/25
Home Medication Changes
Pending Results: No
[2025-02-10 08:00] VITALS: BP 114/81
[2025-02-10] MEDS: CELEBREX 200 MG PO (08:44)
[2025-02-10] MEDS: NON-FORMULARY ITEM 1 MG PO (08:45)
[2025-02-10] MEDS: NON-FORMULARY ITEM 1 SPRAY NASAL (08:45)
--- NOTE | 2025-02-10 10:06 | CM ---
Patient has been medically cleared for discharge to home with [facility] RN services. Daughter and S-I-L will transport patient home in their private
W/ van.
--- NOTE | 2025-02-10 13:54 | W.DCSUMMARY ---
Discharge Summary
Discharge Data
Date of Admission: 02/06/25
Date of Discharge: 02/10/25
-
Pending Results: No
Hospital Course
Discharging Physician : Dr. Sejal Chandler
Disposition : Home
Primary care physician : Dr. Yoselin Petty
Principal Discharge diagnosis : ALS, hypercarbic respiratory function
Hospital Course :
Mr. Hernesto Das is a 59 year old man with hx ALS and progressive respiratory failure who presented with a rapid decline in his respiratory function over the last 24 hours initiated by an episode of sore throat and postnasal drip. EMS was
called, patient noted to have SpO2 80's. He was placed on oxygen but continued with increased work of breathing and was placed on BiPAP in the ER.
Blood pressure stable, pulse 107. He had a white count of 12.8 hemoglobin normal platelet count normal. His electrolytes were normal with a bicarb of 29 and a BUN and creatinine of 10 and 0.3.
Troponin was negative, BNP was negative. COVID test was negative. Flu test was negative. Chest x-ray showed no acute infiltrates.
Patient was admitted to the IMU with Pulmonary consulting. He initially received steroids, these were weaned off as patient was without wheezing. NIF remained low, but this is patient's baseline and him and family felt comfortable with discharge.
He was weaned off of oxygen.
Patient had a long discussion about option of trach with Pulmonary and will have continued discussions as outpatient in the office.
He met with ST and IDDSI 6 recommended at discharge.
Time spent on discharge was 35 minutes.
Important imaging findings :
Procedure findings :
Discharge Plan
-
Patient Disposition: Home (Routine Discharge)
Discharge Diagnosis/Procedures: hypercapnic respiratory failure requiring BiPAP
Diet: Other diet
Additional Diets: Thin Liquids via SINGLE SIPS, IDDSI Level 6 (Soft/Bite Sized Solids)
Activity: As tolerated
Activity Restrictions/Additional Instructions:
Wound Care Instructions
Posterior shoulder blades, heels, elbows and sacrum: clean with soap and water, silicone foam(assess daily for any skin changes) change q 3 days and prn soilage.
Frequent shifts in position when in bed
Can take bariatric air cushion and Miguelito Dejuan lite offloading heel boots upon discharge.
*IF DEVELOPS WOUNDS, Follow up at wound care center call for an appointment.
Referrals:
Yoselin Petty MD [Family Provider, Psychiatry]
Roxanne Odonnell DO [Active, Pulmonary Medicine] - in one to two weeks
Prescriptions:
Continued
lorazepam [Ativan] 0.5 mg Tablet
0.5 mg PO Q3H PRN (Reason: anxiety)
celecoxib [Celebrex] 200 mg Capsule
200 mg PO BID
riluzole 50 mg Tablet
50 mg PO BID
fluticasone propionate 50 mcg/actuation [place],Suspension
1 spray INTRANASAL BID
Discharge Orders:
Discharge Patient (As Directed); Ordered 02/10/25
Ordered By: Sejal Chandler
Discharge Date and Time
Discharge Date/Time: 02/10/25 11:17
Print Language: SLOVAK
== END 2025-02-10 11:17 | disposition home health service (06) | DRG 189 ==
LOC: IMU 23:55
PROVIDERS: Physician Assistant; ADMITTING PHYSICIAN Internal Medicine; ATTENDING PHYSICIAN Student in an Organized Health Care Education/Training Program; CONSULT PHYSICIAN Internal Medicine Critical Care Medicine; EMERGENCY PHYSICIAN Emergency Medicine; FAMILY PHYSICIAN Psychiatry & Neurology Neurology
DX: J96.02 Acute respiratory failure with hypercapnia (principal); R53.2 Functional quadriplegia; G12.21 Amyotrophic lateral sclerosis; R65.10 Systemic inflammatory response syndrome (SIRS) of non-infectious origin without acute organ dysfunction; Z68.1 Body mass index [BMI] 19.9 or less, adult; Z11.52 Encounter for screening for COVID-19; J96.01 Acute respiratory failure with hypoxia; J20.9 Acute bronchitis, unspecified; R63.6 Underweight
CPT/HCPCS: 71045; 80048; 80053; 82805; 83735; 83880; 84100; 84145; 84484; 85025; 85027; 85379; 87502; 87811; 92523; 92610; 92612; 93005; 94640; 94660; 96374; 97163; 97166; 97530; 99285

== ENCOUNTER 2025-02-16 09:58 | Inpatient (IN) | payer OTHER, SELFPAY ==
[2025-02-16] VITALS (17 sets, daily range): BP systolic 96–114; BP diastolic 68–86; BMI 16.3; BMI 16.9
[2025-02-16 02:20] LABS: % Basophils 0.2 % (0-2); % Eosinophils 0.3 % (0-6); % Immature Granulocytes 0.5 % (0-0.5); % Lymphocytes 5.5 % (20.5-51.1); % Monocytes 8.9 % (1.7-9.3); % Neutrophils 84.6 % (42.2-75.2); Absolute Immature Granulocytes 0.1 10^3/uL (0-0.05); Absolute Lymphocytes 0.7 10^3/uL (1.2-3.4); Absolute Monocytes 1.1 10^3/uL (0.1-0.6); Absolute Neutrophils 10.6 10^3/uL (1.4-6.5); Hematocrit 37.1 % (39.0-52.0); Hemoglobin 12.3 g/dL (13.0-18.0); Mean Corp Hgb Conc. 33.2 g/dL (33.0-37.0); Mean Corpuscular Hgb 30.8 pg (27.0-31.0); Mean Corpuscular Volume 92.8 fL (80.0-94.0); Mean Platelet Volume 9.5 fL (7.4-10.4); Nucleated Red Blood Cells % 0 % (-); Platelet Count 233 10^3/uL (130-400); Red Cell Dist. Width 12.6 % (11.5-14.5); White Blood Cell Count 12.6 10^3/uL (4.8-10.8)
[2025-02-16 02:36] LABS: ALT (SGPT) 39 U/L (0-50); AST (SGOT) 25 U/L (17-59); Albumin 3.6 g/dl (3.5-5.0); Alkaline Phosphatase 250 U/L (38-126); Blood Urea Nitrogen 13 mg/dl (9-20); Calcium 9.7 mg/dl (8.4-10.2); Carbon Dioxide 30 mmol/L (22-30); Chloride 98 mmol/L (98-107); Glucose 114 mg/dl (70-99); Potassium 4.6 mmol/L (3.5-5.1); Sodium 132 mmol/L (135-145); Total Protein 6.5 g/dl (6.3-8.2); eGFR > 60.00
[2025-02-16 03:37] LABS: Venous Blood Gas B.E. 3.3 mmol/L (-4 to +4); Venous Blood Gas HCO3 30.6 mmol/L (22-27); Venous Blood Gas pCO2 58 mmHg (35-48); Venous Blood Gas pH 7.33 (7.32-7.43); Venous Blood Gas pO2 43 mmHg (30-50)
[2025-02-16 03:49] LABS: Venous Blood Gas O2 Therapy 96 non invasive vent
--- NOTE | 2025-02-16 05:35 | ED.GENMED ---
History of Present Illness
General
Chief Complaint: Breathing Problem
Source: patient
Exam Limitations: none
Time Seen by Provider: 02/16/25 04:58
Nursing documentation reviewed up to this point in time: agreed with
History of Present Illness
History of Present Illness:
Note:
CHIEF COMPLAINT(S)
Shortness of breath, productive cough, fever.
HISTORY OF PRESENT ILLNESS
The patient is a 59-year-old male with a history of ALS with progressive respiratory failure, history of recent hospitalization and intermittent nocturnal CPAP usage, presenting with worsening respiratory symptoms. Symptoms began last weekend with
cold-like manifestations, including a runny nose. Over the last few days, the patient has reported a cough and increasing shortness of breath. The patients oxygen saturation has been measured at home, ranging from 85% to 87% at rest, despite using a
CPAP machine. He does not have oxygen at home. Fever was noted yesterday at 101�F, reduced with medication, but no fever was reported last week. The patient denies abdominal pain, nausea, or vomiting. The patient has been producing a significant
amount of mucus. According to EMS, there has been intermittent use of a cpap, but no oxygen supplementation device is used. The concern for potential pneumonia was raised, given the past hospitalization and current symptoms.
ADDITIONAL HISTORY OBTAINED FROM SOURCES OTHER THAN THE PATIENT
Per EMS, the patient typically uses CPAP intermittently at night, but recent illness has increased the reliance on it. The patients oxygen levels have been monitored at home, with advised intervention thresholds when falling below 88%.
REVIEW OF SYSTEMS
As above in HPI
PHYSICAL EXAM
General: Well appearing, in no acute distress
HEENT normocephalic atraumatic neck is supple
Heart: Tachycardic and regular
Lungs: Slightly diminished bilaterally no wheezes, no rales, no rhonchi
Extremities: No lower extremity swelling or edema
Skin: Warm no rash
PLAN
1. Confirm chest x-ray findings and consult with additional colleagues to rule out pneumonia or other chest pathologies.
2. Consider CT scan to evaluate for pulmonary embolism or other potential complications if no improvement.
3. Discuss potential changes in the treatment course with the primary care team, including possible changes to CPAP settings or treatment.
4. Collaborate with pulmonology if necessary, for further evaluation and management.
5. Monitor oxygen saturation closely and respond according to home care protocol to prevent further hypoxemia.
DIFFERENTIAL DIAGNOSIS
The Differential Diagnosis includes, in no particular order and is not limited to:
1. Viral infection
2. Bacterial pneumonia
3. Chronic obstructive pulmonary disease exacerbation
4. Pulmonary embolism
5. Asthma exacerbation
6. Congestive heart failure
7. Acute bronchitis
8. Upper respiratory infection
9. Pneumothorax
10. COVID-19 infection
REVIEW OF PRIOR RECORDS
reviewed ds from 02/10/25
MDM/DISPOSITION
The patient is a 59-year-old male with a history of ALS with progressive respiratory failure, history of recent hospitalization and intermittent nocturnal CPAP usage, presenting with worsening respiratory symptoms. CTA shows no PE but shows severe
b/l pneumonia. Attending aware will initiate vanc and cefepime. Patient referred for admission/
Phy Exam
Physical Exam
Physical Exam:
see hpi
Scores
Heart Failure Risk
Heart Failure Risk Score: Not Applicable
Course
Orders/Labs/Results
Orders:
Orders
02/16/25 02:04
EKG [Electrocardiogram (*1)] Urgent
Reason for Study: Shortness of Breath
EKG- Treatment ONCE
02/16/25 02:07
Complete Blood Count/With Diff Urgent
Comprehensive Metabolic Panel Urgent
02/16/25 03:33
Venous Blood Gas Urgent
%Oxygen/Room Air: 96
Comment: non invasive vent
02/16/25 04:41
Portable Chest Xray [CR Chest Portable - 1 View] Urgent
Comment:
Reason For Exam: respir. distress
Reason Study Needs to be Portable: Unable to Transport
02/16/25 05:35
CT Chest PE Study Urgent
Comment:
Reason For Exam: hypoxia
02/16/25 07:18
Lactic Acid Urgent
Blood Culture Q30M
BENOIT Source: Blood/Venous
Specimen Description:
Blood Culture Q30M
BENOIT Source: Blood/Venous
Specimen Description:
02/16/25 07:27
Vancomycin 1 Gram/200 ml [Vancocin] 1 gram in 200 ml IV NOW
02/16/25 07:28
Cefepime HCl [Maxipime] 2,000 mg IV NOW STA
02/16/25 09:23
Admit/Transfer Patient As Directed
Co-Sign Provider:
Level of Care: Inpatient admission
Assign to:: IMU- Intermediate Care
Physician / Group: priscila lancaster
Diagnosis: resp failure, PNA, ALS
Reason for Hospitalization: resp failure, PNA, ALS
Expected length of stay greater than two midnights?: Yes
ELOS- Estimated Length of Stay in days: 3
I certify the patient meets the requirements for IP care: Yes
PRN Pain Medication Management As Directed
May give lesser potent ordered pain med per pt: Yes
preference::
Protocol:: Medication orders for pain may be administered in a
manner that supports deferring to patient preference
when the pt is:
- Requesting an ordered lesser potent pain medication.
Least to most potent pain medications are defined
as: acetaminophen < NSAID < tramadol < opioids
(morphine, oxycodone, hydromorphone).
- Requesting a lesser dose of the same medication IF
ORDERED.
- Requesting a less intrusive route of administration
if both routes are prescribed by the provider (PO <
IV).
02/16/25 09:27
Code Status As Directed
Resuscitation Status: Full Code
02/16/25 09:33
MetroNIDAZOLE 500 MG/100 ML [Flagyl 500 mg] 100 ml IV NOW
02/16/25 09:53
COVID-19 Antigen Urgent
Source: Nasal Swab
Influenza A+B Rapid Molecular Urgent
BENOIT Source: Nasal Swab
Specimen Description:
02/16/25 Lunch
IDDSI 6 - Soft & Bite Sized
02/16/25 10:21
Acetaminophen [Tylenol] 650 mg PO Q4HPRN PRN
Cefepime HCl [Maxipime] 1,000 mg IV Q12H
Celecoxib [Celebrex] 200 mg PO BID
Cetirizine HCl [Zyrtec] 10 mg PO DAILY
Guaifenesin [Mucinex] 1,200 mg PO Q12
Guaifenesin/Codeine Solution [Robitussin AC] 10 ml PO Q4HPRN PRN cough
Ipratropium/Albuterol Sulfate [Duoneb] 3 ml INH R Q4HPRN PRN
Lorazepam [Ativan] 1 mg PO Q3HPRN PRN anxiety
Mag Hydrox/Al Hydrox/Simeth [Maalox] 15 ml PO QIDPRN PRN
Ondansetron Injectable [Zofran] 4 mg IV Q6HPRN PRN
VANCOMYCIN Pharmacy to Dose [VANCOCIN Pharmacy to Dose] 1 each Pharmacy To Prepare [Call Pharmacy To Prepare] 0 ml IV PER PROTOCOL
fluticasone propionate 1 spray NASAL BID
ibuprofen-acetaminophen [Advil Dual Action] 1 tablet PO Q8HPRN PRN
riluzole 50 mg PO BID
02/16/25 10:21
PULMONARY CONSULT Routine
Consulting Provider: Duane Wakefield
Was physician already notified: Yes
Legionella Urinary Antigen Routine
BENOIT Source: Urine
Specimen Description:
Respiratory Culture/Gram Stain Urgent
BENOIT Source: Sputum
Specimen Description:
Strep pneumoniae Antigen Routine
BENOIT Source: Urine
Specimen Description:
Vancomycin MRSA PCR Screen Urgent
BENOIT Source: Nose
Specimen Description:
Activity As Directed
Activity Level: Out of Bed-Early Mobility
Intake/ Output As Directed
Frequency: Per unit guidelines
Vital Signs As Directed
Frequency: Per unit guidelines
Weight As Directed
Frequency: Once
Comment: on admission
Rx Pep / [place]capela [RESP] Routine
Ot Eval And Treat Routine
Pt Eval And Treat Routine
Activity Level: Ambulate
Speech Therapy Eval & Treat Routine
DX Deep Vein Thrombosis Video Routine
02/16/25 16:00
MetroNIDAZOLE [Flagyl] 500 mg PO Q8
02/16/25 18:00
Enoxaparin Sodium [Lovenox] 40 mg SC QPM
02/17/25 06:00
Complete Blood Count/No Diff IN AM
Abnormal Lab Results
02/16/25 02/16/25
02:07 03:33
WBC 12.6 H 10^3/uL
(4.8-10.8)
RBC 4.00 L 10^6/uL
(4.70-6.10)
Hgb 12.3 L g/dL
(13.0-18.0)
Hct 37.1 L %
(39.0-52.0)
Abs Immat Gran (auto) 0.1 H 10^3/uL
(0-0.05)
Absolute Neuts (auto) 10.6 H 10^3/uL
(1.4-6.5)
Absolute Lymphs (auto) 0.7 L 10^3/uL
(1.2-3.4)
Absolute Monos (auto) 1.1 H 10^3/uL
(0.1-0.6)
Neutrophils % 84.6 H %
(42.2-75.2)
Lymphocytes % 5.5 L %
(20.5-51.1)
VBG pCO2 58 H mmHg
(35-48)
VBG HCO3 30.6 H mmol/L
(22-27)
Sodium 132 L mmol/L
(135-145)
Creatinine 0.3 L mg/dL
(0.7-1.3)
Glucose 114 H mg/dl
(70-99)
Alkaline Phosphatase 250 H U/L
(38-126)
02/16/25 02:07
02/16/25 02:07
Vital Signs
Initial and Last Documented VS:
Initial Vital Signs
Pulse Ox
98
02/16/25 02:01
Last Documented Vital Signs
Temp Pulse Resp BP Pulse Ox
97.9 F 97 16 104/76 98
02/16/25 02:04 02/16/25 10:00 02/16/25 10:00 02/16/25 10:00 02/16/25 05:35
*Pulse Oximetry
SaO2: 98
Oxygen Mode of Delivery: BiPAP
*Critical Care Note
Total Time (30-74mins, 75-104mins- exclusive of procedures): Not Applicable
ED Attending Note
-
Portions of this chart may have been created with voice recognition software.� Occasional wrong word or��sound alike� substitutions may have occurred due to the inherent limitations of voice recognition software.
Discharge Plan
Departure
Patient Disposition: Admit
Date of Disposition: 02/16/25
Time of Disposition: 07:30
Admit to: IMU
Presentation/result/management discussed w/ accepting MD/DO: Hospitalist
Patient with high blood pressure during this ER visit?: No
Condition: Good
Discharge Problem:
Severe pneumonia, Acute hypoxic respiratory failure
Interventions
Interventions:
*Risk Screen - Suicide Last Done: 02/16/25 02:01
*General Assessment Last Done: 02/16/25 02:01
*Neglect/Abuse Screening Last Done: 02/16/25 02:01
*ED- Fall Risk Assessment Last Done: 02/16/25 02:01
*ED COVID-19 Vaccine History Last Done: 02/16/25 02:01
ED- Cardiac Assessment Last Done: 02/16/25 02:01
ED- Pulmonary Assessment Last Done: 02/16/25 02:01
[2025-02-16] MEDS: MAXIPIME 2000 MG IV (07:45)
[2025-02-16] MEDS: VANCOCIN 200 IV (07:45)
[2025-02-16 08:06] LABS: Lactic Acid 0.9 mmol/L (0.7-2.0)
--- NOTE | 2025-02-16 08:12 | HPS.HSE ---
Family Physician
-
Family Physician: Yoselin Petty
Chief Complaint
-
Shortness of breath, fever
History of Present Illness
59-year-old male with a past medical history of ALS, and progressive respiratory failure dependent on BiPAP who presents with shortness of breath and fever. Patient was recently discharged for respiratory failure on 02/10/2025. He uses his BiPAP at
night and during the day as needed. He and daughter report that he has been having fever at home, worsening cough, and shortness of breath. He has been having severe rhinorrhea and laryngitis symptoms as well. He feels his sinusitis is acting up.
Denies chest pain, denies vomiting. He lives with his daughter. He is continued on a soft/bite-size diet at home.
Medical History
Past Medical History
Past Medical History: Reports Other (ALS)
Past Surgical History: Reports None
Social History
Tobacco: Non-smoker
Alcohol: None
Drug: None
Personal:
Living: With Family
Employment: Disabled
Family History
Family History: Not pertinent
Allergies / Home Medications
Allergies reflects when Allergies were last updated in [facility].
Home Medications with original date entered in [facility]
Allergy/Medication List:
Allergies
Allergy/AdvReac Type Severity Reaction Status Date / Time
Penicillins Allergy Unknown Verified 02/16/25 02:00
Home Medications Table - record
�Medication �Instructions �Recorded �Confirmed
celecoxib 200 mg capsule (Celebrex) 200 mg PO BID Pain 02/06/25 02/16/25
fluticasone propionate 50 1 spray intranasal BID Allergies 02/06/25 02/16/25
mcg/actuation nasal
spray,suspension
lorazepam 0.5 mg tablet (Ativan) 1 mg PO Q3HPRN PRN anxiety 02/06/25 02/16/25
riluzole 50 mg tablet 50 mg PO BID ALS 02/06/25 02/16/25
azithromycin 250 mg tablet 0 mg PO .COMPLEX 02/16/25 02/16/25
codeine 10 mg-guaifenesin 100 mg/5 10 ml PO Q4HPRN PRN cough 02/16/25 02/16/25
mL oral liquid
ibuprofen 125 mg-acetaminophen 250 1 tab PO Q8HPRN PRN mild pain 02/16/25 02/16/25
mg tablet (Advil Dual Action)
Review of Systems
-
History Source: Patient and Family
Constitutional: Reports No Symptoms
EENT: Reports No Symptoms
Respiratory: Reports Trouble Breathing
Cardiac: Reports No Symptoms
Abdomen/GI: Reports No Symptoms
: Reports No Symptoms
Musculoskeletal: Reports No Symptoms
Skin: Reports No Symptoms
Neurological: Reports No Symptoms
Endocrine: Reports No Symptoms
Hematologic/Lymphatic: Reports No Symptoms
Psych: Reports No Symptoms
Physical Exam
Vital Signs
Vital Signs
Temp Pulse Resp BP Pulse Ox
97.9 F 96 13 104/75 98
02/16/25 02:04 02/16/25 08:00 02/16/25 08:00 02/16/25 08:00 02/16/25 05:35
Physical Exam
General: Respiratory Distress and Appears Chronically Ill
HEENT: NormoCephalic, Anicteric and Moist mucous membranes
Cardiac: Tachycardia
GI: Soft, Non Tender, Non Distended and Normal Bowel Sounds
Musculoskeletal: No Clubbing, No Cyanosis and No Edema
Skin: Warm and Dry
Neuro: Awake, Alert and Oriented
Psych: Calm
Laboratory Results
-
02/16/25 02:07
02/16/25 02:07
Laboratory Results
Lactic Acid 0.9 mmol/L (0.7-2.0) 02/16/25 07:18
Total Bilirubin 1.0 mg/dl (0.2-1.3) 02/16/25 02:07
AST 25 U/L (17-59) 02/16/25 02:07
ALT 39 U/L (0-50) 02/16/25 02:07
Alkaline Phosphatase 250 U/L (38-126) H 02/16/25 02:07
Data Reviewed
-
Diagnostic Radiology: Image Personally Visualized and interpreted and Report Reviewed by me
Lab Data: Labs Reviewed by me
Old Records: Reviewed
Impression/Plan
-
HPI: 59-year-old male with a past medical history of ALS, and progressive respiratory failure dependent on BiPAP who presents with shortness of breath and fever. Patient was recently discharged for respiratory failure on 02/10/2025. He uses his
BiPAP at night and during the day as needed. He and daughter report that he has been having fever at home, worsening cough, and shortness of breath. He has been having severe rhinorrhea and laryngitis symptoms as well. He feels his sinusitis is
acting up. Denies chest pain, denies vomiting. He lives with his daughter. He is continued on a soft/bite-size diet at home.
#Worsening respiratory failure due to ALS and pneumonia
#Sepsis secondary to pneumonia
Influenza and flu negative
Status post vancomycin and cefepime in the ER
Continue vancomycin, cefepime, add Flagyl for anaerobic coverage
Check MRSA PCR, urine strep and Legionella antigens, sputum Gram stain and culture
Continue BiPAP, consult pulmonology, consult SPL, add bronchodilators
#Sinusitis
Continue supportive care with Flonase, cough medications as needed
Add Zyrtec
#Progressive ALS
Diagnosed in 2019
Patient resides with his daughter
Discussed with patient and daughter that he wishes everything to be done
He would like to be on a respirator and have a tracheostomy if he should progress to that point
Continue riluzole 50 mg bid
#Normocytic anemia
#Hyponatremia
#Chronic debility
DVT prophylaxis�subcu Lovenox
Full code confirmed with patient and daughter upon admission
Total time spent to see the patient on the floor, examine the patient, review data and lab results, discuss treatment plan with patient, nursing staff around 76 minutes.
[2025-02-16 10:37] LABS: COVID-19 Antigen Negative (Negative)
--- NOTE | 2025-02-16 10:38 | PHA.VAN.IN ---
Assessment
- Assessment
Renal Function: Appears similar to baseline
Renal Function may be Overestimated due to: Low muscle mass
Concomitant Antimicrobials: Cefepime, metronidazole
AUC Dosing Plan
- Dosing Variables
Dosing Weight (kg): 56.1
Dosing CrCl (ml/min): 108
Vd coefficient (L/kg): 0.7
- Empiric Dosing
Initial / Loading Dose: 1000mg
Maintenance Regimen: 750mg IV Q12H
Estimated AUC (mcg*h/mL): 425
Estimated Peak (mcg*h/mL): 28.2
Estimated Trough (mcg/ml): 10
Estimated Half Life (H): 7.4
- Monitoring
No levels ordered at this time: Consider when at steady state with current regimen
Pharmacokinetics Vancomycin I
- -
Patient Age: 59
Patient Sex: Male
Vancomycin Day #: 1
Indication: Pulmonary/Respiratory
Requesting Provider: Dr. Osullivan
Pertinent Antimicrobial Allergies:
Penicillin - unknown reaction
Height / Weight:
Height 6 ft 1 in
Actual Weight 56.1 kg
Pertinent Past Medical History: BMI ~16.3, ALS
- Vital Signs / Lab Results
Temp Pulse Resp BP Pulse Ox
97.9 F 97 16 104/76 98
02/16/25 02:04 02/16/25 10:00 02/16/25 10:00 02/16/25 10:00 02/16/25 05:35
Lab Results - Hematology
02/16/25
02:07
WBC 12.6 H
Lab Results - Chemistry
02/16/25
02:07
BUN 13
Creatinine 0.3 L
Albumin 3.6
02/16/25
07:18
Lactic Acid 0.9
Microbiology Results
02/16/25 09:53 Influenza Types A & B (TALI) - Final
Nasal Swab Negative for Influenza A & B, NAAT
Negative results must be combined with clinical observations
and patient history.
Nucleic Acid Amplification test (NAAT)performed on the
[employer] platform.
--- NOTE | 2025-02-16 10:47 | CM ---
CM reviewed chart and met with pt, his daughter Kimberlee and SUSHMA bedside in ED.
Kimberlee is HC POA.
Lives with daughter and son in law, multistory home with ramps in to home, BR/BA on first floor.
Pt is WC bound, requires assistance for ADLs and feeding, cannot transfer himself
Pt has caregivers form 6am until 11pm from [employer] and family friends who assist.
He goes to OT weekly through [place].
Has hospital bed, 2 WCs, Bipap, shower chair, ceiling lift and TOBII device to assist with communication and computer usage.
He is current with VN, confirmed with [facility]
PCP: Yoselin Petty
Pharmacy: [facility]
Discharge plan: Anticipate home with services, follow for needs
[2025-02-16] MEDS: ATIVAN 1 MG PO ×2 (11:50→20:39)
[2025-02-16] MEDS: ZYRTEC 10 MG PO (12:35)
[2025-02-16] MEDS: CELEBREX 200 MG PO ×2 (12:35→20:38)
[2025-02-16] MEDS: MUCINEX 1200 MG PO ×2 (12:35→20:39)
[2025-02-16] MEDS: FLAGYL 500 MG 100 IV (12:36)
[2025-02-16] MEDS: NON-FORMULARY ITEM 50 MG PO ×2 (12:53→20:39)
--- NOTE | 2025-02-16 13:58 | CON.PUL ---
Consultation
Consultation Request
Date/Time Consultation Requested: 02/16/2025
Date/Time Consultation Performed: 02/16/2025
Requesting Provider: Fortino Osullivan
Performing Provider: Duane Wakefield
Reason for Consultation: Respiratory failure
Medical History
-
History of Present Illness:
Patient is a very pleasant 59-year-old gentleman with history of ALS and chronic respiratory failure, home noninvasive positive pressure ventilation dependent who presents to the hospital with worsening respiratory symptoms. Patient reports recent
onset of runny nose, cold-like symptoms and worsening cough and increasing shortness of breath. Patient noted to be hypoxic at home in mid 80s despite his positive pressure ventilation machine. Patient also noted to have fever at around 101 degree
and was brought to the emergency room for further evaluation. Workup in the emergency room suggestive of bilateral lower lobe infiltrate suggestive of pneumonia and likely aspiration pneumonia.
Patient has known history of ALS for about 5 years now. Patient has had progressive decline in respiratory status. Presently at home patient is on noninvasive ventilation at home when he sleeps or naps and during daytime he uses a volume-cycled
assist-control mode via a mouthpiece. Patient has a CoughAssist device to help with airway secretion clearance. Patient had a recent hospitalization from 02 07 to 02/10, related to respiratory failure which was felt to be related to mucous
plugging and was managed conservatively with BiPAP, brief steroid use as well as pulmonary toilet. Patient was readmitted 02/16 for respiratory failure and with new diagnosis of aspiration pneumonia. Pulmonary consultation was requested for
further input.
PMHx: ALS dependent on NIV at home, seasonal allergies
PSHx: Non-contributory
Past Medical History
Past Medical History: Other (Above as per HPI)
Past Surgical History: Other (Above as per HPI)
Social History
Tobacco: Non-smoker
Alcohol: None
Drug: None
Living: With Family
Employment: Disabled
Family History
Family History: Reviewed & Not Pertinent
Allergies / Home Medications
Allergies
Allergy/AdvReac Type Severity Reaction Status Date / Time
Penicillins Allergy Unknown Verified 02/16/25 02:00
Home Medications
�Medication �Instructions �Recorded �Confirmed �Last Taken �Type
celecoxib 200 mg capsule (Celebrex) 200 mg PO BID Pain 02/06/25 02/16/25 Unknown History
fluticasone propionate 50 1 spray intranasal BID Allergies 02/06/25 02/16/25 Unknown History
mcg/actuation nasal
spray,suspension
lorazepam 0.5 mg tablet (Ativan) 1 mg PO Q3HPRN PRN anxiety 02/06/25 02/16/25 02/06/25 22:40 History
riluzole 50 mg tablet 50 mg PO BID ALS 02/06/25 02/16/25 Unknown History
azithromycin 250 mg tablet 0 mg PO .COMPLEX 02/16/25 02/16/25 02/15/25 History
codeine 10 mg-guaifenesin 100 mg/5 10 ml PO Q4HPRN PRN cough 02/16/25 02/16/25 02/15/25 History
mL oral liquid
ibuprofen 125 mg-acetaminophen 250 1 tab PO Q8HPRN PRN mild pain 02/16/25 02/16/25 02/15/25 History
mg tablet (Advil Dual Action)
Review of Systems
-
Respiratory: Cough, Trouble Breathing and Other (Increased need for CoughAssist, noninvasive positive pressure ventilation and mouthpiece support.)
Vitals / Labs / Diagnostic Testing
Vital Signs
Temp Pulse Resp BP Pulse Ox
98 F 110 22 104/76 98
02/16/25 11:40 02/16/25 11:00 02/16/25 11:00 02/16/25 10:00 02/16/25 05:35
Lab Data
02/16/25 02:07
02/16/25 02:07
Microbiology
02/16/25 09:53 Nasal Swab Influenza Types A & B (TALI) - Final
Negative for Influenza A & B, NAAT
Negative results must be combined with clinical observations
and patient history.
Nucleic Acid Amplification test (NAAT)performed on the
[employer] NOW platform.
Diagnostic Testing:
Physical Exam
-
HEENT: Normocephalic
Cardiovascular: S1/S2 and Peripheral Edema (1+)
Respiratory: Clear and Rhonchi (Lower lobe rhonchi bilaterally)
GI: Soft and Non Distended
Neurology: Awake and Alert
Skin: Warm
General: Comfortable
Assessment
-
#1. Acute hypoxic and hypercapnic respiratory failure with bibasilar pneumonia, suspect aspiration pneumonia
- Continue O2 support, keep saturations above 90%
- Follow-up on blood cultures
- MRSA screen negative, no obvious abscess noted on imaging, discontinue IV vancomycin and IV Flagyl
- Continue IV cefepime
- Start Solu-Medrol 40 mg daily for 5 days considering the severity of pneumonia
- Start 3% saline nebulizer along with albuterol twice a day followed by CoughAssist to improve airway clearance
#2. Chronic respiratory failure, NIPPV dependent, ALS
- Patient has progressive ALS over the last 5 years and is dependent on noninvasive positive pressure ventilation
- Patient uses PS/CPAP, 4/4 with a target tidal volume 520 when sleeping and when napping
- In between patient uses mouthpiece volume assist ventilation, target tidal volume 1 L, intermittently patient has been able to breathe on his own on room air for short periods at baseline
- Patient also uses CoughAssist on an as needed basis, lately has been needing more along with difficulty sustained breathing on his own on room air when not using mouthpiece
- Patient at risk of respiratory failure particularly in the setting of bilateral aspiration pneumonia and underlying ALS, at risk of needing invasive ventilation. Discussed with patient and his ex- at bedside. Patient agreeable to proceed
with intubation if needed. We also discussed the possibility of difficulty weaning from invasive ventilation and potential need for tracheostomy which patient is agreeable to proceed with.
- Continue pressure support ventilation at night and when sleeping. Will also continue pressure support ventilation during the day alternating with mouthpiece, will target 2 hours versus 2 hours but will change frequency based on patient's
respiratory status. Continue O2 support as needed to keep saturation above 90%. Airway clearance with hypertonic saline and albuterol twice a day followed by CoughAssist to help. Steroid added considering the severity of pneumonia. Will continue
chest physical therapy. Monitor closely in IMU.
Other medical diagnoses:
- Chronic hyponatremia
- Normocytic anemia
- Progressive ALS, follows up with bit sharpener at [facility]. At baseline patient is bedbound and dependent for ADLs and IADLs.
Total time spent on this consultation/encounter __85__ minutes which includes review of history, physical exam, medications, laboratory data, personal review of imaging, extensive review of outpatient records, discussion with care team and
respiratory therapy.
Data:
CT Chest 01/2025: SEVERE BILATERAL LOWER LOBE PNEUMONIA (possibly aspiration pneumonia). No PE detected.
--- NOTE | 2025-02-16 15:17 | VNURNOTE ---
Chart reviewed. [facility], RESEARCH TEST ENGINE EVALUATOR, OT. LANGUAGE TRANSLATOR, pt declined OT eval requesting it a different day. LANGUAGE TRANSLATOR, he declined home PT. Will continue to follow hospital course and DC plans.
[2025-02-16] MEDS: TYLENOL 650 MG PO (16:31)
[2025-02-16] MEDS: ATIVAN PO (16:31)
--- NOTE | 2025-02-16 16:49 | PTCARENOTE ---
Patient received from ED. Patient AAO, VSS. Admission questions done. Patient arrived via stretcher with daughter and son-in-law at bedside. Patient on own breathing device, sipper machine. Will use that same machine for BiPAP HS. Respiratory
therapy aware and able to assist. Skin assessment done with second RN. ABX to get started. Oriented to room. Instructed to take medications home that we carry here to patients ex-. Call dumont head pad in reach.
[2025-02-16] MEDS: SOLU-MEDROL PF 40 MG IV (16:54)
[2025-02-16] MEDS: LOVENOX 40 MG SC (17:00)
[2025-02-16] MEDS: SODIUM CHLORIDE 3% FOR INHALATION 1 VIAL INH (19:21)
[2025-02-16] MEDS: VENTOLIN NEBULES 2.5 MG INH (19:21)
[2025-02-16] MEDS: STERILE WATER FOR INJECTION 10 ML IV (20:39)
[2025-02-16] MEDS: MAXIPIME 1000 MG IV (20:39)
[2025-02-16 21:02] LABS: Urine Albumin 1+ (Neg - Trace); Urine Bilirubin Negative (Negative); Urine Character Clear (Clear); Urine Color Yellow; Urine Glucose Negative (Negative); Urine Ketone 3+ (Negative); Urine Leukocyte Negative (Negative); Urine Nitrite Negative (Negative); Urine Occult Blood Negative (Negative); Urine Specific Gravity 1.015 (<1.030); Urine Urobilinogen Negative (Neg - 1+)
[2025-02-16 21:08] LABS: Urine Red Blood Cell 0-2 /HPF (0-2)
[2025-02-16 21:09] LABS: Urine Bacteria Moderate (Negative)
--- NOTE | 2025-02-16 22:52 | PTCARENOTE ---
Received patient AAox3, family at bedside, denying pain. Call dumont device in reach. NS/ST 90s-100s, normothermic, BP 100s/80s. Palpable pedal and radial pulses b/l. On room air, uses CPAP with sip device attached as needed on 2 liters. Lung sounds
coarse throughout. No BM, dinner from family given, patient ate 100%. #[address] draining urine, labs sent. Scab on right heel, stage 1 on sacrum and scapular areas, foams on top. PIV patent, WNL. Repositioned, put on CPAP mask with
respiratory.
--- NOTE | 2025-02-16 23:35 | RESPNOTE ---
heater/humidifier supplied to patient to use with home BiPAP/NIV unit
[2025-02-17] VITALS (15 sets, daily range): BP systolic 97–119; BP diastolic 71–83; PULSE 89–90; O2SAT 95–97; BMI 16.9
[2025-02-17] MEDS: MAXIPIME 1000 MG IV ×4 (01:47→20:21)
[2025-02-17] MEDS: STERILE WATER FOR INJECTION 10 ML IV ×4 (01:47→20:21)
[2025-02-17] MEDS: ATIVAN 1 MG PO ×5 (04:15→23:21)
[2025-02-17 04:27] LABS: Hematocrit 35.4 % (39.0-52.0); Hemoglobin 11.9 g/dL (13.0-18.0); Mean Corp Hgb Conc. 33.6 g/dL (33.0-37.0); Mean Corpuscular Hgb 30.8 pg (27.0-31.0); Mean Corpuscular Volume 91.7 fL (80.0-94.0); Mean Platelet Volume 9.8 fL (7.4-10.4); Platelet Count 269 10^3/uL (130-400); Red Blood Cell Count 3.86 10^6/uL (4.70-6.10); Red Cell Dist. Width 12.6 % (11.5-14.5); White Blood Cell Count 14.2 10^3/uL (4.8-10.8)
[2025-02-17 04:47] LABS: Blood Urea Nitrogen 15 mg/dl (9-20); Calcium 9.8 mg/dl (8.4-10.2); Carbon Dioxide 28 mmol/L (22-30); Chloride 100 mmol/L (98-107); Estimated Creatinine Clearance 112 ml/min; Glucose 179 mg/dl (70-99); Magnesium 2.1 mg/dl (1.6-2.3); Phosphorus 3.7 mg/dl (2.5-4.5); Sodium 135 mmol/L (135-145); eGFR > 60.00
--- NOTE | 2025-02-17 04:59 | PTCARENOTE ---
Patient assessment unchanged from previous, labs sent, prn ativan given.
[2025-02-17] MEDS: VENTOLIN NEBULES 2.5 MG INH ×2 (07:53→19:29)
[2025-02-17] MEDS: SODIUM CHLORIDE 3% FOR INHALATION 1 VIAL INH (07:53)
[2025-02-17] MEDS: SOLU-MEDROL PF 40 MG IV (08:25)
[2025-02-17] MEDS: MUCINEX 1200 MG PO ×2 (09:15→20:20)
[2025-02-17] MEDS: CELEBREX 200 MG PO ×2 (09:16→20:20)
[2025-02-17] MEDS: ZYRTEC 10 MG PO (09:16)
[2025-02-17] MEDS: NON-FORMULARY ITEM 50 MG PO ×2 (09:17→20:21)
--- NOTE | 2025-02-17 09:20 | W.PN.HOSP.TC ---
Today's Communication/Plan
-
see bold
Assessment / Plan
Assessment / Plan
HPI: 59-year-old male with a past medical history of ALS, and progressive respiratory failure dependent on NIPPV who presents with shortness of breath and fever. Patient was recently discharged for respiratory failure on 02/10/2025. He uses his
PS/CPAP at night and during the day as needed. He and daughter report that he has been having fever at home, worsening cough, and shortness of breath. He has been having severe rhinorrhea and laryngitis symptoms as well. He feels his sinusitis is
acting up. Denies chest pain, denies vomiting. He lives with his daughter. He is continued on a soft/bite-size diet at home.
#Acute on chronic respiratory failure
#Sepsis secondary to pneumonia
Influenza and flu negative, Legionella/strep antigen negative
Status post vancomycin and cefepime in the ER
Patient uses PS/CPAP, 4/4 with a target tidal volume 520 when sleeping and when napping
In between patient uses mouthpiece, volume assist ventilation, target tidal volume 1 L, intermittently patient has been able to breathe on his own on room air for short periods at baseline
Patient reports he is aspirating on his postnasal drippage
Continue cefepime, stop vancomycin as nasal PCR is negative
Appreciate pulmonology input, started on IV Solu-Medrol
Continue albuterol nebs, patient's cannoneer at [place] recommends discontinuation of saline nebs
Check sputum Gram stain and culture if able, trend fever and white count
#Dysphagia
Patient recently seen by [facility] 02/09/25, he declines repeat evaluation this admission
Continue soft/bite-size diet with thin liquids
#Sinusitis
#Severe postnasal drip
Continue supportive care with Flonase
Added Zyrtec and Mucinex this admission
#Progressive ALS
#Progressive respiratory failure
Diagnosed in 2019
Patient resides with his daughter
He would like to be on a respirator and have a tracheostomy if he should progress to that point
Continue riluzole 50 mg bid
#Normocytic anemia
#Hyponatremia
#Chronic debility
DVT prophylaxis�subcu Lovenox
Yes to intubation
No to CPR
Updated daughter at bedside 02/17
Total time spent to see the patient on the floor, examine the patient, review data and lab results, discuss treatment plan with patient, nursing staff around 51 minutes.
Physical Exam
General: Appears chronically debilitated, no acute distress
HEENT: Normocephalic, Atraumatic, EOMI, MMM
Respiratory: Clear to Auscultation bilaterally
Cardiac: Normal S1/S2, Regular Rate and Rhythm
GI: Soft, Nontender, Nondistended, Normal Bowel Sounds
Extremities: No Clubbing, Cyanosis, or Edema
Neuro: Diffuse weakness with atrophy of muscles
Psych: Calm, Cooperative
Anticipated Discharge: > 48 hours
Subjective/Interval History
-
Date of Service: February 17, 2025
Patient reports feeling better. He feels his breathing is back to baseline. He is no longer requiring oxygen. He continues to complain of severe postnasal drip. He feels he is aspirating on his nasal drippage. No chest pain, no fever, no
vomiting.
Objective Data
-
Labs:
Laboratory Results
02/17/25
04:11
WBC 14.2 H
Hgb 11.9 L
Hct 35.4 L
Plt Count 269
Sodium 135
Potassium 5.0
Chloride 100
Carbon Dioxide 28
BUN 15
Creatinine 0.2 L
Glucose 179 H
Calcium 9.8
Vital Signs:
Vital Signs
Temp Pulse Resp BP Pulse Ox
98.4 F 102 21 103/81 95
02/17/25 07:53 02/17/25 09:00 02/17/25 09:00 02/17/25 08:00 02/17/25 09:00
I&O
02/16/25 02/17/25 02/18/25
06:59 06:59 06:59
Output Total 2590 / 2590
Balance -2590 / -2590
--- NOTE | 2025-02-17 11:06 | PTOTSP ---
Pt is requiring total assist for ADLs and transferring out of bed. Pt has assistance at baseline. Encouraged pt to transfer OOB with staff and family assist to further encourage generalized conditioning while hospitalized. no acute OT needs
identified at this time, will sign off.
--- NOTE | 2025-02-17 13:30 | W.PN.PUL3 ---
Today's Communication / Plan
-
- Continue IV cefepime, follow-up on cultures
- Monitor in IMU
Assessment
-
Patient is a very pleasant 59-year-old gentleman with history of ALS and chronic respiratory failure, home noninvasive positive pressure ventilation dependent who presents to the hospital with worsening respiratory symptoms. Patient reports recent
onset of runny nose, cold-like symptoms and worsening cough and increasing shortness of breath. Patient noted to be hypoxic at home in mid 80s despite his positive pressure ventilation machine. Patient also noted to have fever at around 101 degree
and was brought to the emergency room for further evaluation. Workup in the emergency room suggestive of bilateral lower lobe infiltrate suggestive of pneumonia and likely aspiration pneumonia.
Patient has known history of ALS for about 5 years now. Patient has had progressive decline in respiratory status. Presently at home patient is on noninvasive ventilation at home when he sleeps or naps and during daytime he uses a volume-cycled
assist-control mode via a mouthpiece. Patient has a CoughAssist device to help with airway secretion clearance. Patient had a recent hospitalization from 02 07 to 02/10, related to respiratory failure which was felt to be related to mucous
plugging and was managed conservatively with BiPAP, brief steroid use as well as pulmonary toilet. Patient was readmitted 02/16 for respiratory failure and with new diagnosis of aspiration pneumonia. Pulmonary consultation was requested for
further input.
#1. Acute hypoxic and hypercapnic respiratory failure with bibasilar pneumonia, suspect aspiration pneumonia
- Continue O2 support, keep saturations above 90%
- Follow-up on blood cultures
- MRSA screen negative, no obvious abscess noted on imaging, discontinued IV vancomycin and IV Flagyl
- Continue IV cefepime, Legionella and pneumococcal antigen negative
- Continue Solu-Medrol 40 mg daily for 5 days considering the severity of pneumonia
- Continue 3% NS nebulizer along with albuterol twice a day followed by CoughAssist to improve airway clearance
- Patient reports overall feeling better with improving work of breathing
#2. Chronic respiratory failure, NIPPV dependent, ALS
- Patient has progressive ALS over the last 5 years and is dependent on noninvasive positive pressure ventilation
- Patient uses PS/CPAP, 4/4 with a target tidal volume 520 when sleeping and when napping
- In between patient uses mouthpiece, volume assist ventilation, target tidal volume 1 L, intermittently patient has been able to breathe on his own on room air for short periods at baseline
- Patient also uses CoughAssist on an as needed basis, continue at least BID here after hypertonic saline
- Patient at risk of respiratory failure particularly in the setting of bilateral aspiration pneumonia and underlying ALS, at risk of needing invasive ventilation.
- Continue pressure support ventilation at night and when sleeping. Will also continue pressure support ventilation during the day alternating with mouthpiece, will target 2 hours versus 2 hours but will change frequency based on patient's
respiratory status. Continue O2 support as needed to keep saturation above 90%. Airway clearance with hypertonic saline and albuterol twice a day followed by CoughAssist to help. Steroid added considering the severity of pneumonia. Will continue
chest physical therapy. Monitor closely in IMU.
Other medical diagnoses:
- Chronic hyponatremia
- Normocytic anemia
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 At baseline patient is bedbound and dependent for ADLs and IADLs.
Updated patient's daughter at bedside
Total time spent on this consultation/encounter __45__ minutes which includes review of history, physical exam, medications, laboratory data, personal review of imaging, extensive review of outpatient records, discussion with care team and
respiratory therapy.
Data:
CT Chest 01/2025: SEVERE BILATERAL LOWER LOBE PNEUMONIA (possibly aspiration pneumonia). No PE detected.
Subjective Data
-
Date of Service:
Date of Service: February 17, 2025
Subjective:
Patient sitting in bed, was using mouthpiece during my evaluation. Reports overall feeling better.
Review of Systems
Genitourinary: Other (No new symptoms reported.)
Objective Data
Data Reviewed
Vital Signs / I&O / Oxygen:
Vital Signs
Temp Pulse Resp BP Pulse Ox
97.3 F 88 24 116/82 95
02/17/25 12:17 02/17/25 13:00 02/17/25 13:00 02/17/25 12:00 02/17/25 13:00
Intake and Output
02/16/25 02/17/25 02/18/25
06:59 06:59 06:59
Output Total 2590 / 2590
Balance -2590 / -2590
SaO2 [CPAP] 94
SaO2 95
Nasal Cannula flow liters per 3
minute
Physical Exam
General: Comfortable
HEENT: Normocephalic
Cardiovascular: S1-S2
Respiratory: Rhonchi (Improving lower lobe rhonchi) and Non-Labored Respirations
GI: Soft and Non Distended
Neurology: Awake and Alert
Skin: Warm
Labs/Micro/Reports
Lab Data
02/17/25 04:11
02/17/25 04:11
Microbiology
02/16/25 17:57 Urine Legionella Urinary Antigen - Final
Negative for Legionella pneumophila Serogroup 1 antigen.
A negative result does not rule out the possiblity of
Legionella infection due to other serogroups or species of
Legionella. Clinical correlation is recommended.
02/16/25 17:57 Urine Streptococcus pneumoniae Antigen (M - Final
Negative for Streptococcus pneumoniae antigen.
A negative result does not exclude infection with
Streptococcus pneumoniae. Clinical correlation is
recommended.
02/16/25 07:18 Blood/Venous Blood Culture - Preliminary
No Growth in 24 hours- Final report to follow
02/16/25 07:18 Blood/Venous Blood Culture - Preliminary
No Growth in 24 hours- Final report to follow
02/16/25 13:13 Nose Nasal Screen MRSA (PCR) - Final
MRSA not detected - performed by PCR methodology.
02/16/25 09:53 Nasal Swab Influenza Types A & B (TALI) - Final
Negative for Influenza A & B, NAAT
Negative results must be combined with clinical observations
and patient history.
Nucleic Acid Amplification test (NAAT)performed on the
[employer] platform.
--- NOTE | 2025-02-17 15:44 | PTCARENOTE ---
Patient out of bed to personal chair and commode with max assist by caregivers. Patients respiratory equipment managed by family, civil engineering manager and staff discussed plan of care with nursing and family. Good appetite today.
[2025-02-17] MEDS: LOVENOX 40 MG SC (18:07)
--- NOTE | 2025-02-17 19:34 | RESPNOTE ---
pt remains on home cpap machine, appears to be working properly, home aids in room with Mr. Edmonds
--- NOTE | 2025-02-17 22:08 | PTCARENOTE ---
Pt received at beginning of shift resting in bed with caregiver Adithya at bedside. Pt using his own sip device. All pt's respiratory devices maintained by family/caregiver at all times. Adithya verbalizes understanding and stated he will be with pt until
7-8am tomorrow am. Pt requested Ativan at beginning of shift. Medicated with Ativan and HS meds. Pt able to take po meds whole without any s/s of aspiration. Requested a dinner brought in by family ate 100%. Lungs coarse diminished throughout. 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 Not on any oxygen at present time. POX RA 95%. VSS. Afebrile. SR on CM. #25 CC on and draining yellow urine. Pt repositioned intermittently for comfort. Rest of assessment as documented. Head call dumont in place. Will
continue to monitor.
--- NOTE | 2025-02-17 23:35 | PTCARENOTE ---
Caregiver left room and stated to this RN that he was going to his vehicle and would be right back. Caregiver left at [phone]. Upon assessment of pt by this RN just after caregiver left pt's room pt observed on his personal Astrol 100 ventilator with
face mask on. Pt has ALS and is a quadriplegic all extremities. This RN stayed with pt and TT'd Don from RT and made him aware. Don from RT down to see pt. Caregiver returned at [phone] with personal belongings from his vehicle. This RN made Adithya the
caregiver aware that he needs to stay with pt when pt has the Astrol face mask on. Adithya was apologetic and said he will not let this happen again.
[2025-02-18] VITALS (11 sets, daily range): BP systolic 97–136; BP diastolic 70–91
[2025-02-18] MEDS: STERILE WATER FOR INJECTION 10 ML IV ×4 (01:48→21:19)
[2025-02-18] MEDS: FLUSH (NSS) 2 FLUSH IV (01:48)
[2025-02-18] MEDS: MAXIPIME 1000 MG IV ×4 (01:48→21:18)
[2025-02-18 03:45] LABS: Hematocrit 33.2 % (39.0-52.0); Hemoglobin 11.1 g/dL (13.0-18.0); Mean Corp Hgb Conc. 33.4 g/dL (33.0-37.0); Mean Corpuscular Hgb 30.7 pg (27.0-31.0); Mean Corpuscular Volume 91.7 fL (80.0-94.0); Mean Platelet Volume 9.3 fL (7.4-10.4); Platelet Count 270 10^3/uL (130-400); Red Blood Cell Count 3.62 10^6/uL (4.70-6.10); Red Cell Dist. Width 12.5 % (11.5-14.5); White Blood Cell Count 12.1 10^3/uL (4.8-10.8)
--- NOTE | 2025-02-18 04:02 | PTCARENOTE ---
Pt remains on his personal Astrol face mask. Caregiver Adithya sleeping for most of the night after midnight. Obtained pt's am labs with bright light on and caregiver did not wake up. Pt appears comfortable. POX 95% on 3L via his personal Astrol 100
ventilator. Will continue to monitor.
[2025-02-18 04:08] LABS: Blood Urea Nitrogen 19 mg/dl (9-20); Calcium 9.6 mg/dl (8.4-10.2); Carbon Dioxide 27 mmol/L (22-30); Chloride 105 mmol/L (98-107); Estimated Creatinine Clearance 112 ml/min; Glucose 154 mg/dl (70-99); Magnesium 2.2 mg/dl (1.6-2.3); Phosphorus 3.2 mg/dl (2.5-4.5); Potassium 4.9 mmol/L (3.5-5.1); Sodium 135 mmol/L (135-145); eGFR > 60.00
--- NOTE | 2025-02-18 07:00 | W.PN.HOSP.TC ---
Today's Communication/Plan
-
cont abx steroids nebulizer tx's as per Pulm
follow cultures
Assessment / Plan
Assessment / Plan
Physical Exam
General: Appears chronically debilitated, no acute distress
HEENT: Normocephalic, Atraumatic, EOMI, MMM
Respiratory: Clear to Auscultation bilaterally
Cardiac: Normal S1/S2, Regular Rate and Rhythm
GI: Soft, Nontender, Nondistended, Normal Bowel Sounds
Extremities: No Clubbing, Cyanosis, or Edema
Neuro: Diffuse weakness with atrophy of muscles, AOx3 conversant coherent, functional quadriplegia
Psych: Calm, Cooperative
59M hx ALS, functionally quadriplegic, progressive respiratory failure dependent on NIPPV p/w SOB fever. Patient was recently discharged for respiratory failure on 02/10/2025. He uses his PS/CPAP at night and during the day as needed. He and
daughter reported that he had been having fever at home, worsening cough, and shortness of breath. He has been having severe rhinorrhea and laryngitis symptoms as well.
#Acute on chronic respiratory failure
#Sepsis secondary to pneumonia
Influenza and flu negative, Legionella/strep antigen negative
Status post vancomycin and cefepime in the ER
Patient uses PS/CPAP, 4/4 with a target tidal volume 520 when sleeping and when napping
In between patient uses mouthpiece, volume assist ventilation, target tidal volume 1 L, intermittently patient has been able to breathe on his own on room air for short periods at baseline
Continue cefepime, vancomycin stopped as nasal PCR is negative
Appreciate pulmonology input, started on IV Solu-Medrol, cont, daily 3% saline nebulize
Continue albuterol nebs
Check sputum Gram stain and culture if able, trend fever and white count
#Dysphagia
Patient recently seen by [facility] 02/09/25, he declines repeat evaluation this admission
Continue soft/bite-size diet with thin liquids
#Sinusitis
#Severe postnasal drip
Continue supportive care Zyrtec and Mucinex
#Progressive ALS
#Progressive respiratory failure
Diagnosed in 2019
Patient resides with his daughter
He would like to be on a respirator and have a tracheostomy if he should progress to that point
Continue riluzole 50 mg bid
#Normocytic anemia
#Hyponatremia
#Chronic debility
DVT prophylaxis�subcu Lovenox
Yes to intubation
No to CPR
Discussed with patient and patient's daughter Gali at bedside.
I spent a total of 45 minutes with the patient or on the floor. More than 50% of this time involved counseling and coordination of care.
Anticipated Discharge: 24 - 48 hours
Subjective/Interval History
-
Date of Service: February 18, 2025
Seen and examined at bedside in no acute distress sitting up comfortably in bed. Reports improvement in respiration after expectorating large amount of sputum this morning. Daughter Gali present during evaluation.
Objective Data
-
Labs:
Laboratory Results
02/18/25
03:37
WBC 12.1 H
Hgb 11.1 L
Hct 33.2 L
Plt Count 270
Sodium 135
Potassium 4.9
Chloride 105
Carbon Dioxide 27
BUN 19
Creatinine 0.3 L
Glucose 154 H
Calcium 9.6
Vital Signs:
Vital Signs
Temp Pulse Resp BP Pulse Ox
97.6 F 85 16 97/70 95
02/18/25 03:47 02/18/25 06:00 02/18/25 06:00 02/18/25 06:00 02/18/25 06:00
I&O
02/17/25 02/18/25 02/19/25
06:59 06:59 06:59
Intake Total 120 / 120
Output Total 2590 / 2590 850 / 850
Balance -2590 / -2590 -440 / -730
[2025-02-18] MEDS: VENTOLIN NEBULES 2.5 MG INH ×2 (07:45→19:39)
[2025-02-18] MEDS: SOLU-MEDROL PF 40 MG IV (08:30)
[2025-02-18] MEDS: ZYRTEC 10 MG PO (08:31)
[2025-02-18] MEDS: MUCINEX 1200 MG PO ×2 (08:31→21:19)
[2025-02-18] MEDS: CELEBREX 200 MG PO ×2 (08:31→21:18)
[2025-02-18] MEDS: NON-FORMULARY ITEM 50 MG PO ×2 (08:53→21:20)
[2025-02-18] MEDS: ATIVAN 1 MG PO ×4 (08:53→21:30)
[2025-02-18] MEDS: DUONEB 3 ML INH (09:42)
[2025-02-18] MEDS: SODIUM CHLORIDE 3% FOR INHALATION 1 VIAL INH (09:42)
--- NOTE | 2025-02-18 13:21 | W.PN.PUL3 ---
Today's Communication / Plan
-
- Resume 3% saline nebulized at a lower frequency of once daily
- Follow-up chest x-ray and VBG in a.m.
Assessment
-
Patient is a very pleasant 59-year-old gentleman with history of ALS and chronic respiratory failure, home noninvasive positive pressure ventilation dependent who presents to the hospital with worsening respiratory symptoms. Patient reports recent
onset of runny nose, cold-like symptoms and worsening cough and increasing shortness of breath. Patient noted to be hypoxic at home in mid 80s despite his positive pressure ventilation machine. Patient also noted to have fever at around 101 degree
and was brought to the emergency room for further evaluation. Workup in the emergency room suggestive of bilateral lower lobe infiltrate suggestive of pneumonia and likely aspiration pneumonia.
Patient has known history of ALS for about 5 years now. Patient has had progressive decline in respiratory status. Presently at home patient is on noninvasive ventilation at home when he sleeps or naps and during daytime he uses a volume-cycled
assist-control mode via a mouthpiece. Patient has a CoughAssist device to help with airway secretion clearance. Patient had a recent hospitalization from 02 07 to 02/10, related to respiratory failure which was felt to be related to mucous
plugging and was managed conservatively with BiPAP, brief steroid use as well as pulmonary toilet. Patient was readmitted 02/16 for respiratory failure and with new diagnosis of aspiration pneumonia. Pulmonary consultation was requested for
further input.
#1. Acute hypoxic and hypercapnic respiratory failure with bibasilar pneumonia, suspect aspiration pneumonia
- Continue O2 support, keep saturations above 90%
- Follow-up on blood cultures
- MRSA screen negative, no obvious abscess noted on imaging, discontinued IV vancomycin and IV Flagyl
- Continue IV cefepime, Legionella and pneumococcal antigen negative
- Continue Solu-Medrol 40 mg daily for 5 days considering the severity of pneumonia
- In view of difficulty expectorating this morning, resume hypertonic saline, 3%, daily with albuterol in the morning followed by CoughAssist. We can continue to skip the evening dose for now.
- Patient reports overall feeling better with improving work of breathing
- Enterococcus noted in urine, only 20,000 CFU/ml. Await sensitivities. Blood culture continue to stay negative
#2. Chronic respiratory failure, NIPPV dependent, ALS
- Patient has progressive ALS over the last 5 years and is dependent on noninvasive positive pressure ventilation
- Patient uses PS/CPAP, 4/4 with a target tidal volume 520 when sleeping and when napping
- In between patient uses mouthpiece, volume assist ventilation, target tidal volume 1 L, intermittently patient has been able to breathe on his own on room air for short periods at baseline
- Patient also uses CoughAssist on an as needed basis, continue at least BID here after hypertonic saline
- Patient at risk of respiratory failure particularly in the setting of bilateral aspiration pneumonia and underlying ALS, at risk of needing invasive ventilation.
- Continue pressure support ventilation at night and when sleeping. Will also continue pressure support ventilation during the day alternating with mouthpiece, will target 2 hours versus 2 hours but will change frequency based on patient's
respiratory status. Continue O2 support as needed to keep saturation above 90%. Airway clearance with hypertonic saline and albuterol followed by CoughAssist to help. Steroid added considering the severity of pneumonia. Will continue chest
physical therapy. Monitor closely in IMU.
Other medical diagnoses:
- Chronic hyponatremia
- Normocytic anemia
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 At baseline patient is bedbound and dependent for ADLs and IADLs.
Updated patient's daughter at bedside
Total time spent on this consultation/encounter __48__ minutes which includes review of history, physical exam, medications, laboratory data, personal review of imaging, extensive review of outpatient records, discussion with care team and
respiratory therapy.
Data:
CT Chest 01/2025: SEVERE BILATERAL LOWER LOBE PNEUMONIA (possibly aspiration pneumonia). No PE detected.
Subjective Data
-
Date of Service:
Date of Service: February 18, 2025
Subjective:
Patient sitting in chair, currently using mouthpiece, overall reports feeling better. Having harder time coughing up secretions this morning send 3% saline was stopped yesterday.
Review of Systems
Genitourinary: Other (All 14 systems reviewed and negative except as stated above in the history of present illness.)
Objective Data
Data Reviewed
Vital Signs / I&O / Oxygen:
Vital Signs
Temp Pulse Resp BP Pulse Ox
97.2 F 77 16 97/70 97
02/18/25 11:29 02/18/25 09:46 02/18/25 09:46 02/18/25 06:00 02/18/25 10:31
Intake and Output
02/17/25 02/18/25 02/19/25
06:59 06:59 06:59
Intake Total 120 / 120
Output Total 2590 / 2590 850 / 850
Balance -2590 / -2590 -730 / -730
SaO2 [CPAP] 94
SaO2 97
Nasal Cannula flow liters per 2
minute
Physical Exam
General: Comfortable
HEENT: Normocephalic
Cardiovascular: S1-S2
Respiratory: Rhonchi (Improving lower lobe rhonchi) and Non-Labored Respirations
GI: Soft and Non Distended
Neurology: Awake and Alert
Skin: Warm
Labs/Micro/Reports
Lab Data
02/18/25 03:37
02/18/25 03:37
Microbiology
02/16/25 20:37 Urine Urine Culture - Preliminary
Enterococcus species
02/16/25 07:18 Blood/Venous Blood Culture - Preliminary
No Growth in 48 hours- Final report to follow
02/16/25 07:18 Blood/Venous Blood Culture - Preliminary
No Growth in 48 hours- Final report to follow
02/16/25 17:57 Urine Legionella Urinary Antigen - Final
Negative for Legionella pneumophila Serogroup 1 antigen.
A negative result does not rule out the possiblity of
Legionella infection due to other serogroups or species of
Legionella. Clinical correlation is recommended.
02/16/25 17:57 Urine Streptococcus pneumoniae Antigen (M - Final
Negative for Streptococcus pneumoniae antigen.
A negative result does not exclude infection with
Streptococcus pneumoniae. Clinical correlation is
recommended.
02/16/25 13:13 Nose Nasal Screen MRSA (PCR) - Final
MRSA not detected - performed by PCR methodology.
02/16/25 09:53 Nasal Swab Influenza Types A & B (TALI) - Final
Negative for Influenza A & B, NAAT
Negative results must be combined with clinical observations
and patient history.
Nucleic Acid Amplification test (NAAT)performed on the
[employer] platform.
[2025-02-18] MEDS: LOVENOX 40 MG SC (18:26)
[2025-02-19] VITALS (12 sets, daily range): BP systolic 94–125; BP diastolic 73–93
[2025-02-19] MEDS: MAXIPIME 1000 MG IV ×2 (02:00→08:24)
[2025-02-19] MEDS: STERILE WATER FOR INJECTION 10 ML IV ×2 (02:00→08:24)
[2025-02-19] MEDS: FLUSH (NSS) 2 FLUSH IV (02:01)
--- NOTE | 2025-02-19 02:33 | PTCARENOTE ---
Pt received at beginning of shift resting in bed. AAOx3. Denies pain or discomfort though requests occasional readjustments in bed d/t feeling uncomfortable. Caregiver at bedside. Currently on own ventilator with face mask, sleeping. Less cough
overnight than previous night. CC remains on and draining yellow urine. Assessment as documented. Maintained on Q2hr turns. Head call dumont in place. Will continue to monitor.
[2025-02-19 04:01] LABS: Venous Blood Gas B.E. 5.2 mmol/L (-4 to +4); Venous Blood Gas HCO3 30.5 mmol/L (22-27); Venous Blood Gas O2 Sat % 99.6 %; Venous Blood Gas pCO2 47 mmHg (35-48); Venous Blood Gas pH 7.42 (7.32-7.43); Venous Blood Gas pO2 201 mmHg (30-50)
[2025-02-19 04:02] LABS: Venous Blood Gas O2 Therapy 21
[2025-02-19 04:08] LABS: Hematocrit 33.4 % (39.0-52.0); Hemoglobin 11.1 g/dL (13.0-18.0); Mean Corp Hgb Conc. 33.2 g/dL (33.0-37.0); Mean Corpuscular Hgb 30.8 pg (27.0-31.0); Mean Corpuscular Volume 92.8 fL (80.0-94.0); Mean Platelet Volume 9.3 fL (7.4-10.4); Platelet Count 262 10^3/uL (130-400); Red Cell Dist. Width 12.5 % (11.5-14.5); White Blood Cell Count 13.7 10^3/uL (4.8-10.8)
[2025-02-19 04:33] LABS: Blood Urea Nitrogen 21 mg/dl (9-20); Calcium 9.2 mg/dl (8.4-10.2); Carbon Dioxide 30 mmol/L (22-30); Chloride 103 mmol/L (98-107); Estimated Creatinine Clearance 112 ml/min; Glucose 148 mg/dl (70-99); Magnesium 2.3 mg/dl (1.6-2.3); Phosphorus 2.7 mg/dl (2.5-4.5); Potassium 4.9 mmol/L (3.5-5.1); Sodium 134 mmol/L (135-145); eGFR > 60.00
--- NOTE | 2025-02-19 07:03 | W.PN.HOSP.TC ---
Today's Communication/Plan
-
IV cefipime de-escalated to PO cefuroxime with clinical improvement
cont steroids as per Pulm
possible discharge next 24 to 48H if remains stable/continues to improve
Assessment / Plan
Assessment / Plan
Physical Exam
General: Appears chronically debilitated, no acute distress
HEENT: Normocephalic, Atraumatic, EOMI, MMM
Respiratory: Clear to Auscultation bilaterally
Cardiac: Normal S1/S2, Regular Rate and Rhythm
GI: Soft, Nontender, Nondistended, Normal Bowel Sounds
Extremities: No Clubbing, Cyanosis, or Edema
Neuro: Diffuse weakness with atrophy of muscles, AOx3 conversant coherent, functional quadriplegia
Psych: Calm, Cooperative
59M hx ALS, functionally quadriplegic, progressive respiratory failure dependent on NIPPV p/w SOB fever. Patient was recently discharged for respiratory failure on 02/10/2025. He uses his PS/CPAP at night and during the day as needed. He and
daughter reported that he had been having fever at home, worsening cough, and shortness of breath. He has been having severe rhinorrhea and laryngitis symptoms as well.
#Acute on chronic respiratory failure
#Sepsis secondary to pneumonia
Influenza and flu negative, Legionella/strep antigen negative
Status post vancomycin and cefepime in the ER
Patient uses PS/CPAP, 4/4 with a target tidal volume 520 when sleeping and when napping
In between patient uses mouthpiece, volume assist ventilation, target tidal volume 1 L, intermittently patient has been able to breathe on his own on room air for short periods at baseline
vancomycin stopped as nasal PCR is negative
IV cefipime transitioned to PO cefuroxime with clinical improvement
Appreciate pulmonology input, started on IV Solu-Medrol, cont, daily 3% saline nebulize
Continue albuterol nebs
#Dysphagia
Patient recently seen by [facility] 02/09/25, he declines repeat evaluation this admission
Continue soft/bite-size diet with thin liquids
#Sinusitis
#Severe postnasal drip
Continue supportive care Zyrtec and Mucinex
outpt follow up with ENT recommended
#Progressive ALS
#Progressive respiratory failure
Diagnosed in 2019
Patient resides with his daughter
He would like to be on a respirator and have a tracheostomy if he should progress to that point
Continue riluzole 50 mg bid
#Normocytic anemia
#Hyponatremia
#Chronic debility
DVT prophylaxis�subcu Lovenox
Yes to intubation
No to CPR
Discussed with patient and patient's daughter Gali at bedside.
I spent a total of 40 minutes with the patient or on the floor. More than 50% of this time involved counseling and coordination of care.
Anticipated Discharge: 24 - 48 hours
Subjective/Interval History
-
Date of Service: February 19, 2025
Seen and examined at bedside in no acute distress reports overall feeling well, improvement in sob. Daughter Gali present during evaluation.
Objective Data
-
Labs:
Laboratory Results
02/19/25
03:54
WBC 13.7 H
Hgb 11.1 L
Hct 33.4 L
Plt Count 262
Sodium 134 L
Potassium 4.9
Chloride 103
Carbon Dioxide 30
BUN 21 H
Creatinine 0.3 L
Glucose 148 H
Calcium 9.2
Vital Signs:
Vital Signs
Temp Pulse Resp BP Pulse Ox
97.4 F 77 20 103/74 92
02/19/25 02:59 02/19/25 04:30 02/19/25 04:30 02/19/25 04:00 02/19/25 04:30
I&O
02/18/25 02/19/25 02/20/25
06:59 06:59 06:59
Intake Total 120 / 120
Output Total 850 / 850 3025 / 3025
Balance -730 / -730 -302 / -3024
[2025-02-19] MEDS: SODIUM CHLORIDE 3% FOR INHALATION 1 VIAL INH ×2 (07:48→19:29)
[2025-02-19] MEDS: VENTOLIN NEBULES 2.5 MG INH ×2 (07:48→19:29)
[2025-02-19] MEDS: ATIVAN 1 MG PO ×4 (08:23→23:27)
[2025-02-19] MEDS: MUCINEX 1200 MG PO ×2 (08:23→20:14)
[2025-02-19] MEDS: CELEBREX 200 MG PO ×2 (08:24→20:14)
[2025-02-19] MEDS: ZYRTEC 10 MG PO (08:24)
[2025-02-19] MEDS: NON-FORMULARY ITEM 50 MG PO ×2 (08:25→20:14)
[2025-02-19] MEDS: SOLU-MEDROL PF 40 MG IV (08:25)
--- NOTE | 2025-02-19 15:59 | W.PN.PUL3 ---
Today's Communication / Plan
-
- Increased 3% normal saline nebulized to twice a day along with albuterol followed by CoughAssist for airway clearance
- Procalcitonin in a.m.
- Anticipate discharge over next 24 to 48 hours
Assessment
-
Patient is a very pleasant 59-year-old gentleman with history of ALS and chronic respiratory failure, home noninvasive positive pressure ventilation dependent who presents to the hospital with worsening respiratory symptoms. Patient reports recent
onset of runny nose, cold-like symptoms and worsening cough and increasing shortness of breath. Patient noted to be hypoxic at home in mid 80s despite his positive pressure ventilation machine. Patient also noted to have fever at around 101 degree
and was brought to the emergency room for further evaluation. Workup in the emergency room suggestive of bilateral lower lobe infiltrate suggestive of pneumonia and likely aspiration pneumonia.
Patient has known history of ALS for about 5 years now. Patient has had progressive decline in respiratory status. Presently at home patient is on noninvasive ventilation at home when he sleeps or naps and during daytime he uses a volume-cycled
assist-control mode via a mouthpiece. Patient has a CoughAssist device to help with airway secretion clearance. Patient had a recent hospitalization from 02 07 to 02/10, related to respiratory failure which was felt to be related to mucous
plugging and was managed conservatively with BiPAP, brief steroid use as well as pulmonary toilet. Patient was readmitted 02/16 for respiratory failure and with new diagnosis of aspiration pneumonia. Pulmonary consultation was requested for
further input.
#1. Acute hypoxic and hypercapnic respiratory failure with bibasilar pneumonia, suspect aspiration pneumonia
- Continue O2 support, keep saturations above 90%
- Follow-up on blood cultures
- MRSA screen negative, no obvious abscess noted on imaging, discontinued IV vancomycin and IV Flagyl
- Continue IV cefepime, Legionella and pneumococcal antigen negative
- Continue Solu-Medrol 40 mg daily for 5 days considering the severity of pneumonia
- Patient had increased difficulty expectorating without hypertonic, clinically improved after resumption, will increase to 3% nebulized twice a day along with albuterol followed by CoughAssist.
- Patient reports overall feeling better with improving work of breathing
- Enterococcus noted in urine, only 20,000 CFU/ml. Await sensitivities. Blood culture continue to stay negative
- Procalcitonin in a.m. to help guide future antibiotic therapy
#2. Chronic respiratory failure, NIPPV dependent, ALS
- Patient has progressive ALS over the last 5 years and is dependent on noninvasive positive pressure ventilation
- Patient uses PS/CPAP, 4/4 with a target tidal volume 520 when sleeping and when napping
- In between patient uses mouthpiece, volume assist ventilation, target tidal volume 1 L, intermittently patient has been able to breathe on his own on room air for short periods at baseline
- Patient also uses CoughAssist on an as needed basis, continue at least BID here after hypertonic saline
- Patient at risk of respiratory failure particularly in the setting of bilateral aspiration pneumonia and underlying ALS, at risk of needing invasive ventilation.
- Continue pressure support ventilation at night and when sleeping. Will also continue pressure support ventilation during the day alternating with mouthpiece, will target 2 hours versus 2 hours but will change frequency based on patient's
respiratory status. Continue O2 support as needed to keep saturation above 90%. Airway clearance with hypertonic saline and albuterol followed by CoughAssist to help. Steroid added considering the severity of pneumonia. Will continue chest
physical therapy. Monitor closely in IMU.
Other medical diagnoses:
- Chronic hyponatremia
- Normocytic anemia
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 At baseline patient is bedbound and dependent for ADLs and IADLs.
Updated patient's daughter at bedside
Total time spent on this consultation/encounter __45__ minutes which includes review of history, physical exam, medications, laboratory data, personal review of imaging, extensive review of outpatient records, discussion with care team and
respiratory therapy.
Data:
CT Chest 01/2025: SEVERE BILATERAL LOWER LOBE PNEUMONIA (possibly aspiration pneumonia). No PE detected.
Subjective Data
-
Date of Service:
Date of Service: February 19, 2025
Subjective:
Patient overall feeling better, comfortably lying in bed in no acute distress.
Review of Systems
Genitourinary: Other (All 14 systems reviewed and negative except as stated above in the history of present illness.)
Objective Data
Data Reviewed
Vital Signs / I&O / Oxygen:
Vital Signs
Temp Pulse Resp BP Pulse Ox
98 F 116 24 122/82 91
02/19/25 11:05 02/19/25 14:00 02/19/25 14:00 02/19/25 14:00 02/19/25 14:00
Intake and Output
02/18/25 02/19/25 02/20/25
06:59 06:59 06:59
Intake Total 120 / 120
Output Total 850 / 850 3025 / 3025
Balance -730 / -730 -3025 / -3025
SaO2 [CPAP] 94
SaO2 91
Nasal Cannula flow liters per 1
minute
Physical Exam
General: Comfortable
HEENT: Normocephalic
Cardiovascular: S1-S2
Respiratory: Rhonchi (Improved) and Non-Labored Respirations
GI: Soft and Non Distended
Neurology: Awake and Alert
Skin: Warm
Labs/Micro/Reports
Lab Data
02/19/25 03:54
02/19/25 03:54
Microbiology
02/16/25 20:37 Urine Urine Culture - Final
Enterococcus faecalis
02/16/25 07:18 Blood/Venous Blood Culture - Preliminary
No Growth in 72 hours- Final report to follow
02/16/25 07:18 Blood/Venous Blood Culture - Preliminary
No Growth in 72 hours- Final report to follow
02/16/25 17:57 Urine Legionella Urinary Antigen - Final
Negative for Legionella pneumophila Serogroup 1 antigen.
A negative result does not rule out the possiblity of
Legionella infection due to other serogroups or species of
Legionella. Clinical correlation is recommended.
02/16/25 17:57 Urine Streptococcus pneumoniae Antigen (M - Final
Negative for Streptococcus pneumoniae antigen.
A negative result does not exclude infection with
Streptococcus pneumoniae. Clinical correlation is
recommended.
02/16/25 13:13 Nose Nasal Screen MRSA (PCR) - Final
MRSA not detected - performed by PCR methodology.
[2025-02-19] MEDS: LOVENOX 40 MG SC (17:27)
[2025-02-19] MEDS: CEFTIN 500 MG PO (20:14)
[2025-02-20] VITALS (11 sets, daily range): BP systolic 98–119; BP diastolic 70–92
--- NOTE | 2025-02-20 01:30 | PTCARENOTE ---
Assumed care of Pt at shift change; Pt resting comfortably in bed, Pt daughter and lawn caretaker at bedside. Ativan 1mg provided for chronic anxiety. Assisted with repositioning; Pt AAO x 3; Quadriplegia related to ALS; Condom cath #[address]
draining yellow urine. +1 b/l pitting LE edema; Will continue to monitor and assess.
[2025-02-20 04:30] LABS: Hematocrit 35.9 % (39.0-52.0); Hemoglobin 11.9 g/dL (13.0-18.0); Mean Corp Hgb Conc. 33.1 g/dL (33.0-37.0); Mean Corpuscular Hgb 30.7 pg (27.0-31.0); Mean Corpuscular Volume 92.8 fL (80.0-94.0); Mean Platelet Volume 9.3 fL (7.4-10.4); Platelet Count 278 10^3/uL (130-400); Red Blood Cell Count 3.87 10^6/uL (4.70-6.10); Red Cell Dist. Width 12.4 % (11.5-14.5); White Blood Cell Count 10.7 10^3/uL (4.8-10.8)
[2025-02-20 04:50] LABS: Procalcitonin < 0.05 ng/ml (0.0-0.25)
[2025-02-20 04:53] LABS: Blood Urea Nitrogen 17 mg/dl (9-20); Calcium 9.3 mg/dl (8.4-10.2); Carbon Dioxide 31 mmol/L (22-30); Chloride 102 mmol/L (98-107); Estimated Creatinine Clearance 112 ml/min; Glucose 105 mg/dl (70-99); Magnesium 2.4 mg/dl (1.6-2.3); Phosphorus 3.1 mg/dl (2.5-4.5); Potassium 4.6 mmol/L (3.5-5.1); Sodium 135 mmol/L (135-145); eGFR > 60.00
--- NOTE | 2025-02-20 07:26 | W.PN.HOSP.TC ---
Today's Communication/Plan
-
see a/p
Assessment / Plan
Assessment / Plan
Physical Exam
General: Appears chronically debilitated, no acute distress
HEENT: Normocephalic, Atraumatic, EOMI, MMM
Respiratory: Clear to Auscultation bilaterally
Cardiac: Normal S1/S2, Regular Rate and Rhythm
GI: Soft, Nontender, Nondistended, Normal Bowel Sounds
Extremities: No Clubbing, Cyanosis, or Edema
Neuro: Diffuse weakness with atrophy of muscles, AOx3 conversant coherent, functional quadriplegia
Psych: Calm, Cooperative
59M hx ALS, functionally quadriplegic, progressive respiratory failure dependent on NIPPV p/w SOB fever. Patient was recently discharged for respiratory failure on 02/10/2025. He uses his PS/CPAP at night and during the day as needed. He and
daughter reported that he had been having fever at home, worsening cough, and shortness of breath. He has been having severe rhinorrhea and laryngitis symptoms as well.
#Acute on chronic respiratory failure
#Sepsis secondary to pneumonia
Influenza and flu negative, Legionella/strep antigen negative
Status post vancomycin and cefepime in the ER
Patient uses PS/CPAP, 4/4 with a target tidal volume 520 when sleeping and when napping
In between patient uses mouthpiece, volume assist ventilation, target tidal volume 1 L, intermittently patient has been able to breathe on his own on room air for short periods at baseline
vancomycin stopped as nasal PCR is negative
IV cefipime transitioned to PO cefuroxime with clinical improvement, 02/21/25 planned last day for abx
Appreciate pulmonology input, completed course of IV Solu-Medrol steroids, daily 3% saline nebulize
Continue albuterol nebs
#Dysphagia
Patient recently seen by [facility] 02/09/25, he declines repeat evaluation this admission
Continue soft/bite-size diet with thin liquids
#Sinusitis
#Severe postnasal drip
Continue supportive care Zyrtec and Mucinex
outpt follow up with ENT recommended
#Progressive ALS
#Progressive respiratory failure
Diagnosed in 2019
Patient resides with his daughter
He would like to be on a respirator and have a tracheostomy if he should progress to that point
Continue riluzole 50 mg bid
#Normocytic anemia
#Hyponatremia
#Chronic debility
DVT prophylaxis�subcu Lovenox
Yes to intubation
No to CPR
Discussed with patient and patient's daughter Gali at bedside.
I spent a total of 40 minutes with the patient or on the floor. More than 50% of this time involved counseling and coordination of care.
Anticipated Discharge: Within 24 hours
Subjective/Interval History
-
Date of Service: February 20, 2025
overall reports feeling well. No new acute issues. Daughter Gali present during evaluation
Objective Data
-
Labs:
Laboratory Results
02/20/25
04:13
WBC 10.7
Hgb 11.9 L
Hct 35.9 L
Plt Count 278
Sodium 135
Potassium 4.6
Chloride 102
Carbon Dioxide 31 H
BUN 17
Creatinine 0.2 L
Glucose 105 H
Calcium 9.3
Vital Signs:
Vital Signs
Temp Pulse Resp BP Pulse Ox
97.6 F 76 18 100/80 93
02/20/25 03:05 02/20/25 06:00 02/20/25 06:00 02/20/25 06:00 02/20/25 06:00
I&O
02/19/25 02/20/25 02/21/25
06:59 06:59 06:59
Output Total 3025 / 3025 3500 / 3500
Balance -3025 / -3025 -3500 / -3500
[2025-02-20] MEDS: SODIUM CHLORIDE 3% FOR INHALATION 1 VIAL INH ×2 (07:48→19:20)
[2025-02-20] MEDS: VENTOLIN NEBULES 2.5 MG INH ×2 (07:48→19:20)
[2025-02-20] MEDS: ZYRTEC 10 MG PO (08:36)
[2025-02-20] MEDS: CELEBREX 200 MG PO ×2 (08:36→20:46)
[2025-02-20] MEDS: CEFTIN 500 MG PO ×2 (08:36→20:46)
[2025-02-20] MEDS: MUCINEX 1200 MG PO ×2 (08:36→20:46)
[2025-02-20] MEDS: NON-FORMULARY ITEM 50 MG PO ×2 (08:37→20:46)
[2025-02-20] MEDS: SOLU-MEDROL PF 40 MG IV (08:38)
[2025-02-20] MEDS: ATIVAN 1 MG PO ×3 (08:42→21:46)
[2025-02-20 11:36] LABS: HCO3 32.7 mmol/L (21-28); O2 Saturation % 94.2 % (94-98); PCO2 40 mmHg (35-48); PO2 63 mmHg (83-108); pH 7.52 (7.35-7.45)
--- NOTE | 2025-02-20 15:11 | PTCARENOTE ---
Rec'd pt this AM. repositioned several times in bed. range of motion exercises completed with pt expressing relief. Daughter assisted. Pt's caregiver, Adithya at bedside who assisted pt OOB to wheelchair at Pt's request. vital signs stable. Requiring 2L
through his Cpap/Bipap.
--- NOTE | 2025-02-20 15:55 | CM ---
Addendum entered by Nazanin So 02/20/25 16:17:
Amparo S also setting up secondary NIV for home through [employer]
Original Note:
CM reviewed pt with Dr Trinidad-RAHUL tomorrow
Home O2 eval completed and pt qualifies for 2L
[facility] setting up home O2 with [employer]
Discharge Disposition- home with [facility] and new O2
--- NOTE | 2025-02-20 15:56 | RESPNOTE ---
Patient unable to ambulate,due to diagnosis. SaO2 87% on room air, placed on O2 2L, SaO2 92% with movement of head.
--- NOTE | 2025-02-20 16:11 | W.PN.PUL3 ---
Today's Communication / Plan
-
- NIF testing
- Check ABG, assess for need for home oxygen
- Anticipate discharge 02/21
Assessment
-
Patient is a very pleasant 59-year-old gentleman with history of ALS and chronic respiratory failure, home noninvasive positive pressure ventilation dependent who presents to the hospital with worsening respiratory symptoms. Patient reports recent
onset of runny nose, cold-like symptoms and worsening cough and increasing shortness of breath. Patient noted to be hypoxic at home in mid 80s despite his positive pressure ventilation machine. Patient also noted to have fever at around 101 degree
and was brought to the emergency room for further evaluation. Workup in the emergency room suggestive of bilateral lower lobe infiltrate suggestive of pneumonia and likely aspiration pneumonia.
Patient has known history of ALS for about 5 years now. Patient has had progressive decline in respiratory status. Presently at home patient is on noninvasive ventilation at home when he sleeps or naps and during daytime he uses a volume-cycled
assist-control mode via a mouthpiece. Patient has a CoughAssist device to help with airway secretion clearance. Patient had a recent hospitalization from 02 07 to 02/10, related to respiratory failure which was felt to be related to mucous
plugging and was managed conservatively with BiPAP, brief steroid use as well as pulmonary toilet. Patient was readmitted 02/16 for respiratory failure and with new diagnosis of aspiration pneumonia. Pulmonary consultation was requested for
further input.
#1. Acute hypoxic and hypercapnic respiratory failure with bibasilar pneumonia, suspect aspiration pneumonia
- Continue O2 support, keep saturations above 90%
- Follow-up on blood cultures
- MRSA screen negative, no obvious abscess noted on imaging, discontinued IV vancomycin and IV Flagyl
- IV cefepime has been transitioned to oral Ceftin. WBC count normal this morning, procalcitonin unremarkable.
- 5 days of steroids completed
- Patient had increased difficulty expectorating without hypertonic, clinically improved after resumption, continue twice daily for now along with albuterol followed by CoughAssist
- Patient reports overall feeling better with improving work of breathing
- Enterococcus noted in urine, only 20,000 CFU/ml.
#2. Chronic respiratory failure, NIPPV dependent, ALS
- Patient has progressive ALS over the last 5 years and is dependent on noninvasive positive pressure ventilation
- Patient uses PS/CPAP, 4/4 with a target tidal volume 520 when sleeping and when napping
- In between patient uses mouthpiece, volume assist ventilation, target tidal volume 1 L, intermittently patient has been able to breathe on his own on room air for short periods at baseline
- Patient also uses CoughAssist on an as needed basis, continue at least BID here after hypertonic saline
- Patient at risk of respiratory failure particularly in the setting of bilateral aspiration pneumonia and underlying ALS, at risk of needing invasive ventilation.
- Continue pressure support ventilation at night and when sleeping. Will also continue pressure support ventilation during the day alternating with mouthpiece, will target 2 hours versus 2 hours but will change frequency based on patient's
respiratory status. Continue O2 support as needed to keep saturation above 90%. Airway clearance with hypertonic saline and albuterol followed by CoughAssist to help. Steroid were added considering the severity of pneumonia. Will continue chest
physical therapy.
- We again discussed about need for invasive ventilation in the near future, we briefly talked about tracheostomy and PEG tube placement. Patient feels that his respiratory status has improved with this recent hospitalization and he feels
comfortable sticking with current nightly noninvasive and daytime mouthpiece. He finds it helpful to use CoughAssist after albuterol and 3% normal saline with good expectoration.
- Check NIF, check ABG to evaluate for any hypercapnia, evaluate for home oxygen
Other medical diagnoses:
- Chronic hyponatremia
- Normocytic anemia
- Progressive ALS, follows up with roofing layer at [facility]. At baseline patient is bedbound and dependent for ADLs and IADLs.
Updated patient's daughter at bedside, anticipate discharge 02/21
Total time spent on this consultation/encounter __45__ minutes which includes review of history, physical exam, medications, laboratory data, personal review of imaging, extensive review of outpatient records, discussion with care team and
respiratory therapy.
Data:
CT Chest 01/2025: SEVERE BILATERAL LOWER LOBE PNEUMONIA (possibly aspiration pneumonia). No PE detected.
Subjective Data
-
Date of Service:
Date of Service: February 20, 2025
Subjective:
Patient comfortably sitting in bed in no acute distress, currently he was using mouthpiece during my evaluation and later I witnessed him working with CoughAssist with good expectoration.
Review of Systems
Genitourinary: Other (No new symptoms reported.)
Objective Data
Data Reviewed
Vital Signs / I&O / Oxygen:
Vital Signs
Temp Pulse Resp BP Pulse Ox
98.1 F 97 15 99/70 94
02/20/25 10:58 02/20/25 12:00 02/20/25 12:00 02/20/25 12:00 02/20/25 12:47
Intake and Output
02/19/25 02/20/25 02/21/25
06:59 06:59 06:59
Output Total 3025 / 3025 3500 / 3500
Balance -3025 / -3025 -3500 / -3500
SaO2 [CPAP] 94
SaO2 94
Nasal Cannula flow liters per 2
minute
Physical Exam
General: Comfortable
HEENT: Normocephalic
Cardiovascular: S1-S2
Respiratory: Rhonchi (Improved) and Non-Labored Respirations
GI: Soft and Non Distended
Neurology: Awake and Alert
Skin: Warm
Labs/Micro/Reports
Lab Data
02/20/25 04:13
02/20/25 04:13
Laboratory Results
02/20/25
11:18
pH 7.52 H
pCO2 40
pO2 63 L
HCO3 32.7 H
O2 Delivery Level
Microbiology
02/16/25 07:18 Blood/Venous Blood Culture - Preliminary
No Growth in 4 days- Final report to follow
02/16/25 07:18 Blood/Venous Blood Culture - Preliminary
No Growth in 4 days- Final report to follow
02/16/25 20:37 Urine Urine Culture - Final
Enterococcus faecalis
--- NOTE | 2025-02-20 16:13 | VNURNOTE ---
Met with patient and CG at bedside. Patient confirms he would like to resume [facility]. He qualified for new home 02. Patient anxious to go home. He confirmed [employer] is DME co supplying NIV. Patient stated he's been trying to get a second NIV as a
backup. Current NIV's battery does not keep a charge for long. Spoke with [employer] F[facility] hobbs. Notified of above. Patient will need portable 02 delivered to room. Awaiting forms from [employer] [facility] for Dr signature. Otto aware plan is DC 02/21. CM Fortino
aware.
New home 02 and second (back up) NIV through [employer].
[facility] resumption referral accepted in [facility].
[2025-02-20] MEDS: LOVENOX 40 MG SC (18:10)
[2025-02-21] VITALS (7 sets, daily range): BP systolic 95–107; BP diastolic 75–83
--- NOTE | 2025-02-21 03:38 | PTCARENOTE ---
Received pt at change of shift. Pt OOB in WC utilizing sipper device with 2L O2 at 93%. Lungs diminished. Increased WOB present; tachypneic. Pt caregiver at bedside until 23:00. Pt transferred to bed with call dumont in reach of pt head turning.
--- NOTE | 2025-02-21 07:39 | W.PN.HOSP.TC ---
Addendum entered and electronically signed by Amita Trinidad MD 02/22/25 08:54:
Pressure injury stage [Present on admission Left Upper Back] Stage 1
Pressure injury stage [Present on admission Right Upper Back] Stage 1
Pressure injury stage [Present on admission Sacrum] Stage 1
pressure injury POA Lt Upper Back Stage 1
pressure injury POA Rt Upper Back Stage 1
pressure injury POA Sacrum Stage 1
Addendum entered and electronically signed by Amita Trinidad MD 02/22/25 08:51:
BMI 16.9 underweight/cachectic
Original Note:
Today's Communication/Plan
-
discharge
Assessment / Plan
Assessment / Plan
Physical Exam
General: Appears chronically debilitated, no acute distress
HEENT: Normocephalic, Atraumatic, EOMI, MMM
Respiratory: Clear to Auscultation bilaterally
Cardiac: Normal S1/S2, Regular Rate and Rhythm
GI: Soft, Nontender, Nondistended, Normal Bowel Sounds
Extremities: No Clubbing, Cyanosis, or Edema
Neuro: Diffuse weakness with atrophy of muscles, AOx3 conversant coherent, functional quadriplegia
Psych: Calm, Cooperative
59M hx ALS, functionally quadriplegic, progressive respiratory failure dependent on NIPPV p/w SOB fever. Patient was recently discharged for respiratory failure on 02/10/2025. He uses his PS/CPAP at night and during the day as needed. He and
daughter reported that he had been having fever at home, worsening cough, and shortness of breath. He has been having severe rhinorrhea and laryngitis symptoms as well.
#Acute on chronic respiratory failure
#Sepsis secondary to pneumonia
Influenza and flu negative, Legionella/strep antigen negative
Status post vancomycin and cefepime in the ER
Patient uses PS/CPAP, 4/4 with a target tidal volume 520 when sleeping and when napping
In between patient uses mouthpiece, volume assist ventilation, target tidal volume 1 L, intermittently patient has been able to breathe on his own on room air for short periods at baseline
vancomycin stopped as nasal PCR is negative
IV cefipime transitioned to PO cefuroxime with clinical improvement, 02/21/25 planned last day for abx
Appreciate pulmonology input, completed course of IV Solu-Medrol steroids, daily 3% saline nebulize w/ albuterol twice a day followed by CoughAssist
Continue albuterol nebs
Patient is in need of oxygen at 2 liters/minute via nasal cannula continuously due to pulse oximetry of 87% on room air at rest. Oxygen will help to improve hypoxemia. Patient is mobile within the home. DuoNeb therapy has been tried and is
ineffective in treating hypoxemia related symptoms. Oxygen is needed to improve symptoms.
Patient requires 20-24 hour a day non-invasive mechanical ventilatory support. This is life support without which he would be at risk for clinical deterioration, hospitalization, and . Because of the amount of time required, I am prescribing a
second ventilator for patient to use as part of his home Care Plan. This is in accordance with national guidelines that recognize the potential catastrophic outcomes in the event of mechanical failure for those ventilator assisted patients that
require >20 hours per day of life support or cannot maintain adequate gas exchange without mechanical ventilation for >2hours. Please provide a 2nd Astral vent to be used for safe transport from bed to chair/transport to MD appointments and MPV Mode
in chair/transport.
#Dysphagia
Patient recently seen by [facility] 02/09/25, he declines repeat evaluation this admission
Continue soft/bite-size diet with thin liquids
#Sinusitis
#Severe postnasal drip
Continue supportive care Zyrtec and Mucinex
outpt follow up with ENT recommended
#Progressive ALS
#Progressive respiratory failure
Diagnosed in 2019
Patient resides with his daughter
He would like to be on a respirator and have a tracheostomy if he should progress to that point
Continue riluzole 50 mg bid
#Normocytic anemia
#Hyponatremia
#Chronic debility
DVT prophylaxis�subcu Lovenox
Yes to intubation
No to CPR
Medically stable for discharge home with home services and outpatient follow up recommendations.
Total Time Preparing Discharge ___40____ minutes including examination of the patient, summary of the hospital stay, instructions for continuing care to all relevant caregivers; and preparation of discharge records, prescriptions, and referral
forms if necessary.
Anticipated Discharge: Today
Subjective/Interval History
-
Date of Service: February 21, 2025
Seen and examined at bedside in no acute distress. Overall reports feeling well. Denies new acute issues. Eager to go home.
Objective Data
-
Vital Signs:
Vital Signs
Temp Pulse Resp BP Pulse Ox
98 F 76 16 95/75 95
02/21/25 03:33 02/21/25 02:00 02/21/25 02:00 02/21/25 02:00 02/21/25 02:00
I&O
02/20/25 02/21/25 02/22/25
06:59 06:59 06:59
Output Total 3500 / 3500 2950 / 2950
Balance -3500 / -3500 -2950 / -2950
[2025-02-21] MEDS: VENTOLIN NEBULES 2.5 MG INH (07:47)
[2025-02-21] MEDS: SODIUM CHLORIDE 3% FOR INHALATION 1 VIAL INH (07:47)
[2025-02-21] MEDS: ATIVAN 1 MG PO ×3 (08:23→17:03)
[2025-02-21] MEDS: CELEBREX 200 MG PO (08:24)
[2025-02-21] MEDS: MUCINEX 1200 MG PO (08:24)
[2025-02-21] MEDS: ZYRTEC 10 MG PO (08:25)
[2025-02-21] MEDS: NON-FORMULARY ITEM 50 MG PO (08:25)
[2025-02-21] MEDS: CEFTIN 500 MG PO (08:25)
--- NOTE | 2025-02-21 08:44 | W.PN.UPDATE ---
Update Note
Progress Note Update
Patient is in need of oxygen at 2 liters/minute via nasal cannula continuously due to pulse oximetry of 87% on room air at rest. Oxygen will help to improve hypoxemia. Patient is mobile within the home. DuoNeb therapy has been tried and is
ineffective in treating hypoxemia related symptoms. Oxygen is needed to improve symptoms.
Patient requires 20-24 hour a day non-invasive mechanical ventilatory support. This is life support without which he would be at risk for clinical deterioration, hospitalization, and . Because of the amount of time required, I am prescribing a
second ventilator for patient to use as part of his home Care Plan. This is in accordance with national guidelines that recognize the potential catastrophic outcomes in the event of mechanical failure for those ventilator assisted patients that
require >20 hours per day of life support or cannot maintain adequate gas exchange without mechanical ventilation for >2hours. Please provide a 2nd Astral vent to be used for safe transport from bed to chair/transport to MD appointments and MPV Mode
in chair/transport.
--- NOTE | 2025-02-21 09:07 | VNURNOTE ---
Second NIV and oxygen Rx and clinicals faxed to Fam at [facility].
--- NOTE | 2025-02-21 11:09 | CM ---
Patient with Hx ALS with Dx Sepsis secondary to pneumonia, progressive ALS. O2 2L ordered.
Met with patient, daughter Gali and a family friend;
the patient and daughter agree with d/c home today, with daughter to transport by their w/c van.
Patient and daughter are aware of home O2 delivery today through [employer] with concentrator & portable tanks, and that they need to wait here for delivery of portable to hospital room for transport home. Provided Monika with phone # for Fam
[facility].
Patient/daughter agree to resumption [facility] for nurse/OT.
Family will be resuming caregiver through [facility] and daughter and family friend will also continue as caregivers.
Met with ALHAJI Christensen Liaison who arranged home O2 and backup NIV through [employer].
Plan home today with Home O2 through [employer], with order for second backup NIV, with resumption [facility], with resumption caregivers, by family w/c van.
--- NOTE | 2025-02-21 12:30 | W.PN.PUL3 ---
Today's Communication / Plan
-
- Okay to discharge, continue hypertonic saline with albuterol twice a day followed by CoughAssist
- Continue noninvasive ventilation as well as mouthpiece as currently doing
- Outpatient follow-up with the [facility] pulmonary and ENT service
- Will arrange local follow-up with [facility] pulmonary clinic.
Assessment
-
Patient is a very pleasant 59-year-old gentleman with history of ALS and chronic respiratory failure, home noninvasive positive pressure ventilation dependent who presents to the hospital with worsening respiratory symptoms. Patient reports recent
onset of runny nose, cold-like symptoms and worsening cough and increasing shortness of breath. Patient noted to be hypoxic at home in mid 80s despite his positive pressure ventilation machine. Patient also noted to have fever at around 101 degree
and was brought to the emergency room for further evaluation. Workup in the emergency room suggestive of bilateral lower lobe infiltrate suggestive of pneumonia and likely aspiration pneumonia.
Patient has known history of ALS for about 5 years now. Patient has had progressive decline in respiratory status. Presently at home patient is on noninvasive ventilation at home when he sleeps or naps and during daytime he uses a volume-cycled
assist-control mode via a mouthpiece. Patient has a CoughAssist device to help with airway secretion clearance. Patient had a recent hospitalization from 02 07 to 02/10, related to respiratory failure which was felt to be related to mucous
plugging and was managed conservatively with BiPAP, brief steroid use as well as pulmonary toilet. Patient was readmitted 02/16 for respiratory failure and with new diagnosis of aspiration pneumonia. Pulmonary consultation was requested for
further input.
#1. Acute hypoxic and hypercapnic respiratory failure with bibasilar pneumonia, suspect aspiration pneumonia
- Continue O2 support, keep saturations above 90%, will need home oxygen
- Completed antibiotics and steroids. Procalcitonin negative, normal white count, no further need for antibiotics
- Continue airway clearance with 3% and albuterol nebulized twice a day followed by CoughAssist. Updated patient and daughter at bedside and went over discharge instructions.
#2. Chronic respiratory failure, NIPPV dependent, ALS
- Patient has progressive ALS over the last 5 years and is dependent on noninvasive positive pressure ventilation
- Patient uses PS/CPAP, 4/4 with a target tidal volume 520 when sleeping and when napping
- In between patient uses mouthpiece, volume assist ventilation, target tidal volume 1 L, intermittently patient has been able to breathe on his own on room air for short periods at baseline
- Patient also uses CoughAssist on an as needed basis, continue at least BID here after hypertonic saline
- Patient at risk of respiratory failure particularly in the setting of bilateral aspiration pneumonia and underlying ALS, at risk of needing invasive ventilation.
- NIF, continues to be around -10, ABG without hypercapnia. Will need home oxygen
- Resume follow-up with [facility] pulmonary service, patient scheduled to see an ENT surgeon as an outpatient in preparation for PEG/tracheostomy
Other medical diagnoses:
- Chronic hyponatremia
- Normocytic anemia
- Progressive ALS, follows up with interactive media designer at [facility]. At baseline patient is bedbound and dependent for ADLs and IADLs.
Updated patient's daughter at bedside, patient also requested a local pulmonary follow-up, will arrange follow-up in coming weeks at [facility]
Total time spent on this consultation/encounter __45__ minutes which includes review of history, physical exam, medications, laboratory data, personal review of imaging, extensive review of outpatient records, discussion with care team and
respiratory therapy.
Data:
CT Chest 01/2025: SEVERE BILATERAL LOWER LOBE PNEUMONIA (possibly aspiration pneumonia). No PE detected.
Subjective Data
-
Date of Service:
Date of Service: February 21, 2025
Subjective:
Patient comfortably lying in bed, no acute distress, looking forward to be discharged.
Review of Systems
Genitourinary: Other (Reports feeling at being baseline, no new symptoms reported.)
Objective Data
Data Reviewed
Vital Signs / I&O / Oxygen:
Vital Signs
Temp Pulse Resp BP Pulse Ox
97.7 F 85 23 102/83 93
02/21/25 11:05 02/21/25 08:00 02/21/25 08:00 02/21/25 08:00 02/21/25 08:00
Intake and Output
02/20/25 02/21/25 02/22/25
06:59 06:59 06:59
Output Total 3500 / 3500 2950 / 2950
Balance -3500 / -3500 -2950 / -2950
SaO2 [CPAP] 94
SaO2 93
Nasal Cannula flow liters per 2
minute
Physical Exam
General: Comfortable
HEENT: Normocephalic
Cardiovascular: S1-S2
Respiratory: Rhonchi (Improved) and Non-Labored Respirations
GI: Soft and Non Distended
Neurology: Awake and Alert
Skin: Warm
Labs/Micro/Reports
Lab Data
02/20/25 04:13
02/20/25 04:13
Microbiology
02/16/25 07:18 Blood/Venous Blood Culture - Final
No Growth - Final Report
02/16/25 07:18 Blood/Venous Blood Culture - Final
No Growth - Final Report
02/16/25 20:37 Urine Urine Culture - Final
Enterococcus faecalis
--- NOTE | 2025-02-21 14:27 | PN.CDI ---
CDI
- -
CDI:
Physician Documentation Request
Admit Date: 02/16/25 09:58
Dear Doctor Vivi,
Patient admitted for sepsis.
Nursing documentation clinical panel wound care
02/18/25
21:30
Pressure injury appearance (Stage 1) [Present on admission Left Upper Back] Non blanchable
red
Pressure injury appearance (Stage 1) [Present on admission Right Upper Back] Non blanchable
red
Pressure injury appearance (Stage 1) [Present on admission Sacrum] Non blanchable
red
Pressure injury stage [Present on admission Left Upper Back] Stage 1
Pressure injury stage [Present on admission Right Upper Back] Stage 1
Pressure injury stage [Present on admission Sacrum] Stage 1
Physician documentation of the type and location of wounds is required for compliant documentation. Based on the above clinical findings and your assessment, please provide the following in your progress note:
1. Location of the ulcer/wound, including laterality.
2. Type (etiology) of ulcer/wound:
- Diabetic ulcer
- Arterial (ischemic) ulcer
- Traumatic wound
- Venous stasis ulcer
- Pressure (decubitus) ulcer
- Non-healing surgical wound
- Other
- Unable to determine
3. For a non-pressure ulcer, please indicate the depth/severity:
- Limited to the breakdown of skin
- With fat layer exposed
- With necrosis of muscle
- With necrosis of bone
- Other
- Unable to determine
4. If a pressure ulcer, please also include the stage* of the ulcer:
- Stage 1 - Skin intact, non-blanchable redness
- Stage 2 - Partial thickness loss of dermis, includes intact or open blister
- Stage 3 - Full thickness tissue not including bone, tendon or muscle
- Stage 4 - Full thickness tissue loss, including exposed bone, tendon or muscle
- Unstageable - Full thickness loss in which the base of the ulcer is covered by slough (yellow, sierra, lopez, green or brown) and/or eschar (sierra, brown or black) in the wound bed.
- Unable to determine
Use of terms such as suspected, likely, concern for, or probable (associated with a specific diagnosis that is being evaluated, monitored, or treated as if it exists) are acceptable and can be coded in the inpatient setting, when documented at the
time of discharge.
Thank you,
Mohini Kelly RN, BSN
CDI Specialist
Available via [place] text
Please use your independent medical judgment in providing your response.
*Source: National Pressure Ulcer Advisory Panel (NPUAP)
--- NOTE | 2025-02-21 14:31 | PN.CDI ---
CDI
- -
CDI:
Physician Documentation Request
Admit Date: 02/16/25 09:58
Dear Doctor Vivi,
Patient admitted for sepsis.
Please review the following and provide your response in the progress notes.
Clinical Indicators:
Height: 6'
Weight:128 lbs
BMI:16.9
If possible, please provide an associated diagnosis related to the abnormal BMI, such as:
Underweight
Cachectic
Abnormal BMI insignificant
Other
BMI < or = to 19.9
Underweight
Weight Loss
Cachectic
Anorexia
Use of terms such as suspected, likely, concern for, or probable (associated with a specific diagnosis that is being evaluated, monitored, or treated as if it exists) are acceptable and can be coded in the inpatient setting, when documented at the
time of discharge.
Thank you,
Mohini Kelly RN, BSN
CDI Specialist
Available via [place] text
Please use your independent medical judgment in providing your response.
--- NOTE | 2025-02-21 14:59 | W.DCSUMMARY ---
Discharge Summary
Discharge Data
Date of Admission: 02/16/25
Date of Discharge: 02/21/25
-
Pending Results: No
Discharge Plan
-
Patient Disposition: Home with Home Care
Discharge Diagnosis/Procedures: Acute on chronic respiratory failure
Sepsis secondary to pneumonia
Sinusitis
postnasal drip
Progressive ALS
Condition: Fair
Additional Diets: soft bite sized diet
Activity: As tolerated
Others Tests: repeat CT chest without contrast with primary care provider or pulmonology in 1 month of discharge to follow up bilateral lower lobe pneumonia.
Other Services: [facility]
Activity Restrictions/Additional Instructions:
Follow up with your primary care provider in 1 week of discharge. Follow up with your health education specialist at [facility] in 2 weeks discharge.
Continue hypertonic saline with albuterol twice a day followed by [facility]
Continue noninvasive ventilation as well as mouthpiece as currently doing.
Mucinex prescribed for cough and zyrtec prescribed for post-nasal drip
Please take medications as prescribed/recommended and follow up with primary care provider and/or other healthcare provider involved in your care for refills and/or further adjustment to your medication regimen as necessary.
Referrals:
Yoselin Petty MD [Family Provider, Psychiatry]
Roxanne Odonnell DO [Active, Pulmonary Medicine] - in two to three weeks
Referral Note: Patient has complex home ventilation needs.
Wilfred Kolb MD [Active, Otology] - in two weeks
Prescriptions:
New
guaifenesin 600 mg Tablet Extended Release 12hr
1,200 mg PO Q12 7 Days Qty: 28 0RF
sodium chloride [NebuSal] 3 % Solution For Nebulization
4 ml inhalation R BID Qty: 750 0RF
albuterol sulfate 2.5 mg /3 mL (0.083 %) Solution For Nebulization
2.5 mg inhalation R BID Qty: 180 0RF
cetirizine 10 mg Tablet
10 mg PO DAILY 7 Days Qty: 7 0RF
Continued
lorazepam [Ativan] 0.5 mg Tablet
1 mg PO Q3HPRN PRN (Reason: anxiety)
celecoxib [Celebrex] 200 mg Capsule
200 mg PO BID
riluzole 50 mg Tablet
50 mg PO BID
fluticasone propionate 50 mcg/actuation [place],Suspension
1 spray INTRANASAL BID
codeine-guaifenesin 10-100 mg/5 mL liquid
10 ml PO Q4HPRN PRN (Reason: cough)
ibuprofen-acetaminophen [Advil Dual Action] 125-250 mg Tablet
1 tab PO Q8HPRN PRN (Reason: mild pain)
Discontinued
azithromycin 250 mg Tablet
0 mg PO .COMPLEX
Rx Instructions:
For 250 mg dose pack: take 500 mg today (day 1), then 250 mg for 4 days (days 2-5)
Discharge Orders:
Discharge Patient (As Directed); Ordered 02/21/25
Ordered By: Amita Trinidad
Discharge Date and Time
Print Language: PASHTO
== END 2025-02-21 18:35 | disposition home health service (06) | DRG 871 ==
LOC: IMU 09:58
PROVIDERS: Internal Medicine; Physician Assistant; ADMITTING PHYSICIAN Family Medicine; ATTENDING PHYSICIAN Internal Medicine; CONSULT PHYSICIAN Internal Medicine; EMERGENCY PHYSICIAN Emergency Medicine; FAMILY PHYSICIAN Psychiatry & Neurology Neurology
DX: A41.9 Sepsis, unspecified organism (principal); J69.0 Pneumonitis due to inhalation of food and vomit; J96.21 Acute and chronic respiratory failure with hypoxia; J96.22 Acute and chronic respiratory failure with hypercapnia; R53.2 Functional quadriplegia; G12.21 Amyotrophic lateral sclerosis; E87.1 Hypo-osmolality and hyponatremia; R64 Cachexia; Z68.1 Body mass index [BMI] 19.9 or less, adult; Z74.01 Bed confinement status; L89.121 Pressure ulcer of left upper back, stage 1; L89.111 Pressure ulcer of right upper back, stage 1; L89.151 Pressure ulcer of sacral region, stage 1
CPT/HCPCS: 36600; 71045; 71275; 80048; 80053; 81003; 81015; 82805; 83605; 83735; 84100; 84145; 85025; 85027; 87040; 87077; 87086; 87186; 87449; 87502; 87641; 87811; 87899; 93005; 94640; 96365; 96375; 97163; 97167; 99285; Q9967